=== PATIENT | male | born 1940 | race Caucasian/White ===

== ENCOUNTER 2018-09-08 10:12 | Inpatient (IN) | payer MEDICARE, MEDICAID ==
[2018-09-08] MEDS ORDERED: Sodium Chloride 0.9% 10 ML Syringe FLUSH PRN (10:40)
[2018-09-08] MEDS ORDERED: Sodium Chloride 0.9% 2.5 ML Syringe FLUSH PRN (10:40)
[2018-09-08] MEDS ORDERED: oxyCODONE 5 MG Tab PO PRN (11:00)
[2018-09-08] MEDS ORDERED: Docusate Sodium 100 MG Cap PO PRN (11:00)
[2018-09-08] MEDS ORDERED: Ondansetron 4 MG Tab.DIS PO PRN (11:00)
--- NOTE | 2018-09-08 11:16 | PCM.HP ---
H&P History of Present Illness - General Date of Service: 09/08/18 Admit Problem/Dx: Admission Diagnosis/Problem Admission Diagnosis/Problem Aspiration pneumonia due to regurgitated food Source of Information: Patient, Old Records History Limitations: Reports: Other (Poor historian) - History of Present Illness Initial Comments - Free Text/Narative: The patient is a 78-year-old gentleman who is medically complex and had been admitted directly from [facility]. The patient is a poor historian but transferring physician had been concerned about the patient having difficulty with aspiration pneumonia. There is also concerned about the patient having swallowing difficulties. According to records he had been previously on a dysphagia diet. The patient himself says that he has pneumonia but has denied any symptoms. He has been complaining specifically of pain around the skin of his right ear and painful right toenail. The patient has a history of severe psoriasis to include destruction of that his fingernails and toenails. He has denied any fever or chills. The patient reports that he has had a cough when drinking some liquids. He has no other complaints at this time. Onset of Symptoms: Reports: Gradual Duration of Symptoms: Reports: Day(s): Location: Reports: Chest Improves with: Reports: None Worsens with: Reports: None Context: Reports: Sick Contact Associated Symptoms: Reports: Cough - Related Data Allergies/Adverse Reactions: Allergies Allergy/AdvReac Type Severity Reaction Status Date / Time No Known Allergies Allergy Verified 09/08/18 11:17 Home Medications: Home Meds Amoxicillin/Potassium Clav [Augmentin 875-125 Tablet] 1 each PO BID 09/08/18 [ History] Aspirin 81 mg PO DAILY 09/08/18 [History] Cholecalciferol (Vitamin D3) [Vitamin D3] 1,000 unit PO DAILY 09/08/18 [History] Dextran 70/Hypromellose [Artificial Tears] 1 each EYEBOTH TID 09/08/18 [History] Docusate Sodium [Colace] 50 mg PO BID 09/08/18 [History] Donepezil HCl [Aricept] 10 mg PO 1700 09/08/18 [History] Fenofibrate 54 mg PO 1200 09/08/18 [History] Fish Oil/[place]-3 Fatty Acids [Fish Oil 1,000 MG] 1 each PO BID 09/08/18 [History ] Folic Acid 1 mg PO DAILY 09/08/18 [History] Furosemide 40 mg PO DAILY 09/08/18 [History] Ipratropium/Albuterol Sulfate [Iprat-Albut 0.5-3(2.5) MG/3 ML] 3 ml IH Q6H PRN 09/08/18 [History] OLANZapine [ZyPREXA] 20 mg PO DAILY 09/08/18 [History] PARoxetine HCl [Paxil] 40 mg PO 169909/08/18 [History] Pantoprazole Sodium 40 mg PO DAILY 09/08/18 [History] Polyethylene Glycol 3350 [MiraLAX] 17 gm PO BID 09/08/18 [History] Potassium Bicarb/Potassium Chl [Potassium Chloride] 40 meq PO DAILY 09/08/18 [ History] Pramipexole Di-HCl [Mirapex] 0.125 mg PO 169909/08/18 [History] Pregabalin [Lyrica] 75 mg PO TID 09/08/18 [History] amLODIPine Besylate [Norvasc] 10 mg PO DAILY 09/08/18 [History] atorvaSTATin Calcium [Lipitor] 20 mg PO 169909/08/18 [History] clonazePAM [Clonazepam] 0.25 mg PO DAILY 09/08/18 [History] metOLazone [Metolazone] 2.5 mg PO DAILY 09/08/18 [History] predniSONE 5 mg PO DAILY 09/08/18 [History] Past Medical History HEENT History: Reports: None Cardiovascular History: Reports: Heart Failure (Unspecified), Hypertension Respiratory History: Reports: Pneumonia, Recurrent Gastrointestinal History: Reports: None Genitourinary History: Reports: None Musculoskeletal History: Reports: None Neurological History: Reports: Brain Injury, Neuropathy, Diabetic, Neuropathy, Peripheral, Seizure, TIA Psychiatric History: Reports: Anxiety, Depression, Other (See Below) ( Schizoaffective) Endocrine/Metabolic History: Reports: Diabetes, Type II, Obesity/BMI 30+ Hematologic History: Reports: Anemia, Iron Deficiency Immunologic History: Reports: Other (See Below) (Psoriasis) Oncologic (Cancer) History: Reports: None Dermatologic History: Reports: Psoriasis - Infectious Disease History Infectious Disease History: Reports: None Social & Family History - Tobacco Use Smoking Status *Q: Former Smoker - Alcohol Use Alcohol Use History: No - Living Situation & Occupation Living situation: Reports: Single, Extended Care Facility Occupation: Retired H&P Review of Systems - Review of Systems: Review Of Systems: See Below General: Reports: No Symptoms HEENT: Reports: No Symptoms Pulmonary: Reports: Cough Cardiovascular: Reports: No Symptoms Gastrointestinal: Reports: No Symptoms Genitourinary: Reports: No Symptoms Musculoskeletal: Reports: No Symptoms Skin: Reports: Rash Psychiatric: Reports: No Symptoms Neurological: Reports: No Symptoms Hematologic/Lymphatic: Reports: No Symptoms Immunologic: Reports: No Symptoms Review of Systems Comment:: Poor historian Exam - Exam Exam: See Below - Vital Signs Vital Signs: Last Vital Signs Temp 37.2 C 09/08/18 10:15 Pulse 91 09/08/18 10:15 Resp 18 09/08/18 10:15 BP 152/72 H 09/08/18 10:15 Pulse Ox 96 09/08/18 10:15 - Exam Quality Assessment: Supplemental Oxygen, Skin Breakdown General: Alert, Oriented, Cooperative HEENT: Conjunctiva Clear, EACs Clear, Nares Patent, PERRLA. No: Mucosa Moist & [place] (Dry) Neck: Supple, Trachea Midline Lungs: Clear to Auscultation, Normal Respiratory Effort Cardiovascular: Regular Rate, Regular Rhythm GI/Abdominal Exam: Normal Bowel Sounds, Soft, Non-Tender, No Distention (Male) Exam: Deferred Rectal (Males) Exam: Deferred Back Exam: Normal Inspection. No: Full Range of Motion (Age changes) Extremities: Normal Inspection, No Pedal Edema Skin: Rash (Generalized body rash with scaling and plaques consistent with psoriasis. Nails fractured and fragile all digits) Neurological: Cranial Nerves Intact Neuro Extensive - Mental Status: Alert, Oriented x3 Psychiatric: Alert, Normal Mood. No: Normal Affect (Flat affect) - Patient Data Result Diagrams: 09/08/18 12:10 09/08/18 12:10 - Problem List (1) Aspiration pneumonia SNOMED Code(s): 198569836 ICD Code: J69.0 - PNEUMONITIS DUE TO INHALATION OF FOOD AND VOMIT Status: Acute Priority: High Current Visit: Yes Qualifiers: Aspiration pneumonia type: due to gastric secretions Laterality: unspecified laterality Lung location: unspecified part of lung Qualified Code(s): J69.0 - Pneumonitis due to inhalation of food and vomit (2) Chronic kidney disease, stage 3 SNOMED Code(s): 767366452 ICD Code: N18.3 - CHRONIC KIDNEY DISEASE, STAGE 3 (MODERATE) Status: Chronic Priority: High Current Visit: Yes (3) Diabetes mellitus type 2 in obese SNOMED Code(s): 25754440 ICD Code: E11.69 - TYPE 2 DIABETES MELLITUS WITH OTHER SPECIFIED COMPLICATION ; E66.9 - OBESITY, UNSPECIFIED Status: Chronic Priority: High Current Visit: Yes (4) Dysphagia SNOMED Code(s): 06491156, 141449732 ICD Code: R13.10 - DYSPHAGIA, UNSPECIFIED Status: Chronic Priority: High Current Visit: Yes Qualifiers: Dysphagia type: unspecified Qualified Code(s): R13.10 - Dysphagia, unspecified (5) Hypertension SNOMED Code(s): 31255620 ICD Code: I10 - ESSENTIAL (PRIMARY) HYPERTENSION Status: Chronic Priority : High Current Visit: Yes Qualifiers: Hypertension type: essential hypertension Qualified Code(s): I10 - Essential (primary) hypertension (6) Hyperuricemia SNOMED Code(s): 04524763 ICD Code: E79.0 - HYPERURICEMIA W/O SIGNS OF INFLAM ARTHRIT AND TOPHACEOUS DIS Status: Chronic Priority: Medium Current Visit: Yes (7) Mild cognitive impairment SNOMED Code(s): 521203928 ICD Code: G31.84 - MILD COGNITIVE IMPAIRMENT, SO STATED Status: Chronic Priority: Medium Current Visit: Yes Problem List Initiated/Reviewed/Updated: Yes Orders Last 24hrs: Active Orders 24 hr Category Date Time Status Patient Status [ADT] Routine ADT 09/08/18 11:00 Ordered Blood Glucose Check, Bedside [RC] WITHMEALSANDBED Care 09/08/18 11:00 Ordered Cardiac Monitoring [RC] CONTINUOUS Care 09/08/18 11:02 Ordered Diabetes Education [RC] Click to Edit Care 09/08/18 11:03 Ordered Oxygen Therapy [RC] PRN Care 09/08/18 11:00 Ordered Up With Assistance [RC] ASDIRECTED Care 09/08/18 11:00 Ordered VTE/DVT Education [RC] PER UNIT ROUTINE Care 09/08/18 11:00 Ordered Vital Signs [RC] Q4H Care 09/08/18 11:00 Ordered OT Evaluation and Treatment [CONS] Routine Cons 09/08/18 11:00 Ordered PT Evaluation and Treatment [CONS] Routine Cons 09/08/18 11:00 Ordered [employer] Evaluation and Treatment [CONS] Routine Cons 09/08/18 11:00 Ordered [place] [employer] Diet [DIET] Diet 09/08/18 Lunch Ordered Chest 1V Frontal [CR] Routine Exams 09/08/18 10:39 Ordered CBC WITH AUTO DIFF [HEME] Routine Lab 09/08/18 11:00 Ordered COMPREHENSIVE METABOLIC PN,CMP [CHEM] Routine Lab 09/08/18 11:00 Ordered CULTURE BLOOD [BC] Stat Lab 09/08/18 11:07 Ordered CULTURE BLOOD [BC] Stat Lab 09/08/18 11:07 Ordered MAGNESIUM [CHEM] Routine Lab 09/08/18 11:00 Ordered URIC ACID [CHEM] Routine Lab 09/08/18 11:00 Ordered Acetaminophen [Tylenol] Med 09/08/18 11:00 Ordered 650 mg PO Q4H PRN Aspirin Med 09/09/18 09:00 Ordered 81 mg PO DAILY Docusate Sodium [Colace] Med 09/08/18 11:00 Ordered 100 mg PO BID PRN Donepezil [Aricept] Med 09/08/18 17:00 Ordered 10 mg PO 1700 Fenofibrate Med 09/08/18 12:00 Ordered 54 mg PO 1200 Folic Acid Med 09/09/18 09:00 Ordered 1 mg PO DAILY Furosemide [Lasix] Med 09/09/18 09:00 Ordered 40 mg PO DAILY Heparin Sodium Med 09/08/18 11:00 Ordered 5,000 units SUBCUT Q8H Insulin Aspart [NovoLOG] Med 09/08/18 21:00 Ordered See Protocol SUBCUT ACBREAKFASTANDBED Levofloxacin/Dextrose 5%-Water [Levaquin in D5W 250 MG/ Med 09/08/18 11:15 Ordered 50 ML] 250 mg Premix Bag 1 bag IV Q24H Metolazone Med 09/09/18 09:00 Ordered 2.5 mg PO DAILY OLANZapine Med 09/09/18 09:00 Ordered 20 mg PO DAILY Ondansetron [Zofran ODT] Med 09/08/18 11:00 Ordered 4 mg PO Q4H PRN PARoxetine HCl [Paxil] Med 09/08/18 17:00 Ordered 40 mg PO 1700 Pantoprazole [ProTONIX] Med 09/09/18 09:00 Ordered 40 mg PO DAILY Potassium Bicarb/Potassium Chl Med 09/09/18 09:00 Ordered 40 meq PO DAILY Pramipexole Di-HCl Med 09/08/18 17:00 Ordered 0.125 mg PO 1700 Sodium Chloride 0.9% [Normal Saline] 1,000 ml Med 09/08/18 11:00 Ordered IV ASDIRECTED Sodium Chloride 0.9% [Saline Flush] Med 09/08/18 10:40 Active 10 ml FLUSH ASDIRECTED PRN Sodium Chloride 0.9% [Saline Flush] Med 09/08/18 10:40 Active 2.5 ml FLUSH ASDIRECTED PRN amLODIPine Besylate Med 09/09/18 09:00 Ordered 10 mg PO DAILY atorvaSTATin [Lipitor] Med 09/08/18 17:00 Ordered 20 mg PO 1700 clonazePAM [Clonazepam] Med 09/09/18 09:00 Ordered 0.25 mg PO DAILY oxyCODONE Med 09/08/18 11:00 Ordered 5 mg PO Q4H PRN predniSONE Med 09/09/18 09:00 Ordered 5 mg PO DAILY Blood Culture x2 Reflex Set [OM.PC] Stat Oth 09/08/18 11:00 Ordered Glucose Management Sub Q Reflex [OM.PC] Click To Edit Oth 09/08/18 11:00 Ordered Peripheral IV Insertion Adult [OM.PC] Routine Oth 09/08/18 10:40 Ordered Resuscitation Status Routine Resus Stat 09/08/18 11:00 Ordered Medication Orders Acetaminophen (Tylenol) 650 mg PO Q4H PRN PRN Reason: Pain (Mild 1-3)/fever Docusate Sodium (Colace) 100 mg PO BID PRN PRN Reason: Constipation Heparin Sodium (Porcine) (Heparin Sodium) 5,000 units SUBCUT Q8H [facility] Sodium Chloride (Normal Saline) 1,000 mls @ 75 mls/hr IV ASDIRECTED [facility] Levofloxacin/Dextrose 250 mg/ (Premix) 50 mls @ 50 mls/hr IV Q24H [facility] Insulin Aspart (Novolog) 0 unit SUBCUT ACBREAKFASTANDBED JULES; Protocol Ondansetron HCl (Zofran Odt) 4 mg PO Q4H PRN PRN Reason: nausea, able to take PO Oxycodone HCl (Oxycodone) 5 mg PO Q4H PRN PRN Reason: Pain (moderate 4-6) Sodium Chloride (Saline Flush) 10 ml FLUSH ASDIRECTED PRN PRN Reason: Keep Vein Open Sodium Chloride (Saline Flush) 2.5 ml FLUSH ASDIRECTED PRN PRN Reason: Keep Vein Open Assessment/Plan Comment:: The patient is a 78-year-old gentleman who had been admitted as an inpatient due to his multiple chronic medical conditions which require attention. The patient had been placed on renally dosed Levaquin secondary to aspiration pneumonia. Zosyn and vancomycin would be avoided secondary to his chronic kidney disease. The patient is also diabetic and he'll be kept on an ADA diet and of also ordered Accu-Cheks before meals and at bedtime along with insulin medium dose sliding scale. The patient will also be kept on telemetry as he does have a history of unspecified heart failure. He does not present with any signs associated with this. Chest x-ray is currently pending. The patient also has very severe cutaneous psoriasis along with fractured, brittle nails all digits. He is on prednisone for this and this will be continued. The patient also has a gel to use on his psoriasis twice a day. The patient's medication list has been reviewed and he'll be kept on appropriate medications for his hypertension, seizure disorder, dyslipidemia and his schizoaffective disorder with depression and anxiety. The patient will also be placed on heparin for DVT prophylaxis. He will also be evaluated by physical therapy and occupational therapy with regards to return home to his correction when possible. Repeat laboratory testings have been ordered.
[2018-09-08] MEDS ORDERED: Furosemide 40 MG Tab PO SCH (12:00)
[2018-09-08] MEDS: Potassium Chloride 20 MEQ Tab.ER PO SCH (12:01)
[2018-09-08] MEDS: ClonazePAM 0.5 MG Tab PO SCH (12:02)
[2018-09-08] MEDS: amLODIPine 5 MG Tab PO SCH (12:03)
[2018-09-08] MEDS: Folic Acid 1 MG Tab PO SCH (12:03)
[2018-09-08] MEDS: predniSONE 5 MG Tab PO SCH (12:04)
[2018-09-08] MEDS: Pantoprazole 40 MG Tab.CR PO SCH (12:04)
[2018-09-08] MEDS: Aspirin 81 MG Tab.Chew PO SCH (12:04)
[2018-09-08] MEDS: Heparin Sodium 5,000 Units/ML Vial SUBCUT SCH ×2 (12:05→18:51)
[2018-09-08] MEDS: Sodium Chloride 0.9% 1,000 ML IV SCH (12:05)
[2018-09-08] MEDS: Metolazone 5 MG Tab PO SCH (13:53)
[2018-09-08] MEDS: OLANZapine 5 MG Tab PO SCH (13:53)
[2018-09-08] MEDS: Levofloxacin/Dextrose 5%-Water 750 MG in Premix Bag 1 BAG IV SCH (14:03)
--- NOTE | 2018-09-08 14:08 | CR ---
Indication: Pneumonia. Technique: A single AP portable view of the chest was obtained. Comparison: None Findings: The patient is rotated to the right. This accentuates the superior mediastinum. This may or may not be white end. The heart is borderline in size. A probable right basilar atelectasis and/or infiltrate and right pleural effusion is seen. No pneumothorax is identified. Impression: Probable right lower lobe atelectasis and/or infiltrate. Patient is markedly rotated to the right. Dictated by Alix Carmona MD @ Sep 08 2018 12:58PM Signed by Dr. Alix Carmona @ Sep 08 2018 12:59PM
[2018-09-08] MEDS ORDERED: Magnesium Sulfate/Water 4 GM in Premix Bag 1 BAG IV ONE (16:48)
[2018-09-08] MEDS: PARoxetine 20 MG Tab PO SCH (17:30)
[2018-09-08] MEDS: Pramipexole 0.25 MG Tab PO SCH (17:30)
[2018-09-08] MEDS: Donepezil 10 MG Tab PO SCH (17:30)
[2018-09-08] MEDS: atorvaSTATin 20 MG Tab PO SCH (17:31)
[2018-09-08] MEDS: Acetaminophen 325 MG Tab PO PRN (17:32)
[2018-09-08] MEDS: Insulin Aspart 100 Units/ML 3 ML Pen SUBCUT SCH ×2 (17:41→20:31)
[2018-09-08] MEDS ORDERED: Insulin Aspart 100 Units/ML 3 ML Pen SUBCUT SCH (21:00)
[2018-09-09] MEDS: Acetaminophen 325 MG Tab PO PRN (00:13)
[2018-09-09] MEDS: Heparin Sodium 5,000 Units/ML Vial SUBCUT SCH ×3 (04:16→18:04)
[2018-09-09] MEDS: Sodium Chloride 0.9% 1,000 ML IV SCH (04:17)
[2018-09-09] MEDS: Insulin Aspart 100 Units/ML 3 ML Pen SUBCUT SCH ×5 (06:57→21:05)
--- NOTE | 2018-09-09 08:21 | PCM.PN ---
<Yamilet Harris M - Last Filed: 09/09/18 10:39> - General Info Date of Service: 09/09/18 Admission Dx/Problem (Free Text): Admission Diagnosis/Problem Admission Diagnosis/Problem Aspiration pneumonia due to regurgitated food Subjective Update: Sitting up in the recliner, reports he is not feeling well today. Reports more short of breath than yesterday. Denies chest pain. Hurts all over he reports. Reports cough, non productive. Functional Status: Reports: Tolerating Diet, Urinating. Denies: Ambulating - Review of Systems General: Reports: Weakness, Malaise HEENT: Reports: No Symptoms. Denies: Headaches, Sore Throat Pulmonary: Reports: Shortness of Breath, Cough, Wheezing. Denies: Sputum Cardiovascular: Reports: No Symptoms. Denies: Chest Pain, Orthopnea, Edema, Lightheadedness Gastrointestinal: Reports: No Symptoms. Denies: Abdominal Pain, Nausea, Vomiting Genitourinary: Reports: No Symptoms. Denies: Dysuria, Frequency, Burning Musculoskeletal: Reports: No Symptoms Skin: Reports: Dryness, Rash Neurological: Reports: No Symptoms Psychiatric: Reports: No Symptoms - Patient Data Vitals - Most Recent: Last Vital Signs Temp 97.3 F 09/09/18 07:18 Pulse 73 09/09/18 07:18 Resp 16 09/09/18 07:18 BP 154/91 H 09/09/18 07:18 Pulse Ox 99 09/09/18 07:18 Weight - Most Recent: 110.042 kg I&O - Last 24 Hours: Intake & Output 09/08/18 09/09/18 09/09/18 22:59 06:59 14:59 Intake Total 722 400 Balance 722 400 Lab Results Last 24 Hours: Laboratory Results - last 24 hr 09/08/18 09/08/18 09/08/18 Range/Units 11:30 12:10 12:10 WBC 13.78 H (4.0-11.0) K/uL RBC 4.11 L (4.50-5.90) M/uL Hgb 11.5 L (13.0-17.0) g/dL Hct 37.9 L (38.0-50.0) % MCV 92.2 (80.0-98.0) fL MCH 28.0 (27.0-32.0) pg MCHC 30.3 L (31.0-37.0) g/dL RDW Std Deviation 57.7 (28.0-62.0) fl RDW Coeff of Mattie 17 H (11.0-15.0) % Plt Count 217 (150-400) K/uL MPV 11.90 (7.40-12.00) fL Neut % (Auto) 80.9 H (48.0-80.0) % Lymph % (Auto) 6.2 L (16.0-40.0) % [place] % (Auto) 9.6 (0.0-15.0) % Eos % (Auto) 3.1 (0.0-7.0) % Baso % (Auto) 0.2 (0.0-1.5) % Neut # (Auto) 11.1 H (1.4-5.7) K/uL Lymph # (Auto) 0.9 (0.6-2.4) K/uL [place] # (Auto) 1.3 H (0.0-0.8) K/uL Eos # (Auto) 0.4 (0.0-0.7) K/uL Baso # (Auto) 0.0 (0.0-0.1) K/uL Nucleated RBC % 0.0 /100WBC Nucleated RBCs # 0 K/uL Sodium 148 (136-148) mmol/L Potassium 4.2 (3.5-5.1) mmol/L Chloride 108 H (98-107) mmol/L Carbon Dioxide 36.1 H (21.0-32.0) mmol/L BUN 42 H (7.0-18.0) mg/dL Creatinine 2.0 H (0.8-1.3) mg/dL Est Cr Clr Drug Dosing 29.93 mL/min Estimated GFR (MDRD) 32.6 ml/min Glucose 131 H (74-106) mg/dL POC Glucose 128 H (60-110) mg/dL Uric Acid 9.6 H (2.6-7.2) mg/dL Calcium 11.0 H (8.5-10.1) mg/dL Magnesium 1.7 L (1.8-2.4) mg/dL Total Bilirubin 0.4 (0.2-1.0) mg/dL AST 19 (15-37) IU/L ALT 8 L (14-63) IU/L Alkaline Phosphatase 41 L (46-116) U/L Total Protein 6.6 (6.4-8.2) g/dL Albumin 2.3 L (3.4-5.0) g/dL Globulin 4.3 H (2.6-4.0) g/dL Albumin/Globulin Ratio 0.5 L (0.9-1.6) 09/08/18 09/08/18 09/09/18 Range/Units 17:16 20:13 05:49 WBC 10.57 (4.0-11.0) K/uL RBC 3.77 L (4.50-5.90) M/uL Hgb 10.4 L (13.0-17.0) g/dL Hct 34.7 L (38.0-50.0) % MCV 92.0 (80.0-98.0) fL MCH 27.6 (27.0-32.0) pg MCHC 30.0 L (31.0-37.0) g/dL RDW Std Deviation 56.2 (28.0-62.0) fl RDW Coeff of Mattie 17 H (11.0-15.0) % Plt Count 207 (150-400) K/uL MPV 11.90 (7.40-12.00) fL Neut % (Auto) 80.3 H (48.0-80.0) % Lymph % (Auto) 6.5 L (16.0-40.0) % [place] % (Auto) 8.7 (0.0-15.0) % Eos % (Auto) 4.3 (0.0-7.0) % Baso % (Auto) 0.2 (0.0-1.5) % Neut # (Auto) 8.5 H (1.4-5.7) K/uL Lymph # (Auto) 0.7 (0.6-2.4) K/uL [place] # (Auto) 0.9 H (0.0-0.8) K/uL Eos # (Auto) 0.5 (0.0-0.7) K/uL Baso # (Auto) 0.0 (0.0-0.1) K/uL Nucleated RBC % 0.0 /100WBC Nucleated RBCs # 0 K/uL Sodium (136-148) mmol/L Potassium (3.5-5.1) mmol/L Chloride (98-107) mmol/L Carbon Dioxide (21.0-32.0) mmol/L BUN (7.0-18.0) mg/dL Creatinine (0.8-1.3) mg/dL Est Cr Clr Drug Dosing mL/min Estimated GFR (MDRD) ml/min Glucose (74-106) mg/dL POC Glucose 218 H 221 H (60-110) mg/dL Uric Acid (2.6-7.2) mg/dL Calcium (8.5-10.1) mg/dL Magnesium (1.8-2.4) mg/dL Total Bilirubin (0.2-1.0) mg/dL AST (15-37) IU/L ALT (14-63) IU/L Alkaline Phosphatase (46-116) U/L Total Protein (6.4-8.2) g/dL Albumin (3.4-5.0) g/dL Globulin (2.6-4.0) g/dL Albumin/Globulin Ratio (0.9-1.6) 09/09/18 Range/Units 05:49 WBC (4.0-11.0) K/uL RBC (4.50-5.90) M/uL Hgb (13.0-17.0) g/dL Hct (38.0-50.0) % MCV (80.0-98.0) fL MCH (27.0-32.0) pg MCHC (31.0-37.0) g/dL RDW Std Deviation (28.0-62.0) fl RDW Coeff of Mattie (11.0-15.0) % Plt Count (150-400) K/uL MPV (7.40-12.00) fL Neut % (Auto) (48.0-80.0) % Lymph % (Auto) (16.0-40.0) % [place] % (Auto) (0.0-15.0) % Eos % (Auto) (0.0-7.0) % Baso % (Auto) (0.0-1.5) % Neut # (Auto) (1.4-5.7) K/uL Lymph # (Auto) (0.6-2.4) K/uL [place] # (Auto) (0.0-0.8) K/uL Eos # (Auto) (0.0-0.7) K/uL Baso # (Auto) (0.0-0.1) K/uL Nucleated RBC % /100WBC Nucleated RBCs # K/uL Sodium 148 (136-148) mmol/L Potassium 3.5 (3.5-5.1) mmol/L Chloride 109 H (98-107) mmol/L Carbon Dioxide 33.2 H (21.0-32.0) mmol/L BUN 45 H (7.0-18.0) mg/dL Creatinine 2.0 H (0.8-1.3) mg/dL Est Cr Clr Drug Dosing 29.93 mL/min Estimated GFR (MDRD) 32.6 ml/min Glucose 128 H (74-106) mg/dL POC Glucose (60-110) mg/dL Uric Acid (2.6-7.2) mg/dL Calcium 10.7 H (8.5-10.1) mg/dL Magnesium 2.4 (1.8-2.4) mg/dL Total Bilirubin 0.3 (0.2-1.0) mg/dL AST 20 (15-37) IU/L ALT 14 (14-63) IU/L Alkaline Phosphatase 42 L (46-116) U/L Total Protein 5.9 L (6.4-8.2) g/dL Albumin 2.0 L (3.4-5.0) g/dL Globulin 3.9 (2.6-4.0) g/dL Albumin/Globulin Ratio 0.5 L (0.9-1.6) Med Orders - Current: Current Medications Acetaminophen (Tylenol) 650 mg PO Q4H PRN PRN Reason: Pain (Mild 1-3)/fever Last Admin: 09/09/18 00:13 Dose: 650 mg Amlodipine Besylate (Norvasc) 10 mg PO DAILY [facility] Last Admin: 09/08/18 12:03 Dose: 10 mg Aspirin (Aspirin) 81 mg PO DAILY [facility] Last Admin: 09/08/18 12:04 Dose: 81 mg Atorvastatin Calcium (Lipitor) 20 mg PO DAILY@1700 [facility] Last Admin: 09/08/18 17:31 Dose: 20 mg Clonazepam (Klonopin) 0.25 mg PO DAILY [facility] Last Admin: 09/08/18 12:02 Dose: 0.25 mg Docusate Sodium (Colace) 100 mg PO BID PRN PRN Reason: Constipation Donepezil HCl (Aricept) 10 mg PO DAILY@1700 [facility] Last Admin: 09/08/18 17:30 Dose: 10 mg Folic Acid (Folic Acid) 1 mg PO DAILY [facility] Last Admin: 09/08/18 12:03 Dose: 1 mg Furosemide (Lasix) 40 mg PO DAILY [facility] Last Admin: 09/08/18 12:04 Dose: 40 mg Heparin Sodium (Porcine) (Heparin Sodium) 5,000 units SUBCUT Q8H [facility] Last Admin: 09/09/18 04:16 Dose: 5,000 units Levofloxacin/Dextrose 750 mg/ (Premix) 150 mls @ 100 mls/hr IV Q48H [facility] Last Admin: 09/08/18 14:03 Dose: 100 mls/hr Insulin Aspart (Novolog) 0 unit SUBCUT QIDACANDBED [facility]; Protocol Last Admin: 09/09/18 06:57 Dose: Not Given Metolazone (Zaroxolyn) 2.5 mg PO DAILY [facility] Last Admin: 09/08/18 13:53 Dose: 2.5 mg Olanzapine (Zyprexa) 20 mg PO DAILY [facility] Last Admin: 09/08/18 13:53 Dose: 20 mg Ondansetron HCl (Zofran Odt) 4 mg PO Q4H PRN PRN Reason: nausea, able to take PO Oxycodone HCl (Oxycodone) 5 mg PO Q4H PRN PRN Reason: Pain (moderate 4-6) Pantoprazole Sodium (Protonix) 40 mg PO DAILY [facility] Last Admin: 09/08/18 12:04 Dose: 40 mg Paroxetine HCl (Paxil) 40 mg PO DAILY@1700 [facility] Last Admin: 09/08/18 17:30 Dose: 40 mg Fenofibrate 54 Mg 1 each PO DAILY@1200 [facility] Last Admin: 09/08/18 13:05 Dose: Not Given Potassium Chloride (Klor-Con M20) 40 meq PO DAILY [facility] Last Admin: 09/08/18 12:01 Dose: 40 meq Pramipexole Dihydrochloride (Mirapex) 0.125 mg PO DAILY@1700 [facility] Last Admin: 09/08/18 17:30 Dose: 0.125 mg Prednisone (Prednisone) 5 mg PO DAILY [facility] Last Admin: 09/08/18 12:04 Dose: 5 mg Sodium Chloride (Saline Flush) 10 ml FLUSH ASDIRECTED PRN PRN Reason: Keep Vein Open Sodium Chloride (Saline Flush) 2.5 ml FLUSH ASDIRECTED PRN PRN Reason: Keep Vein Open Discontinued Medications Sodium Chloride (Normal Saline) 1,000 mls @ 75 mls/hr IV ASDIRECTED [facility] Last Admin: 09/09/18 04:17 Dose: 75 mls/hr Magnesium Sulfate 4 gm/ Premix 100 mls @ 50 mls/hr IV ONETIME ONE Stop: 09/08/18 18:47 Last Admin: 09/08/18 17:26 Dose: 50 mls/hr Insulin Aspart (Novolog) 0 unit SUBCUT ACBREAKFASTANDBED [facility]; Protocol - Exam Quality Assessment: Supplemental Oxygen, DVT Prophylaxis General: Alert, Oriented, Cooperative, No Acute Distress Lungs: Rhonchi (throughout), Wheezing (throughout). No: Normal Respiratory Effort (dyspneic) Cardiovascular: Regular Rate, Regular Rhythm, No Murmurs GI/Abdominal Exam: Normal Bowel Sounds, Soft, Non-Tender, Other (obese abdomen) Back Exam: Normal Inspection, Full Range of Motion Extremities: Normal Inspection, Normal Range of Motion, Non-Tender, No Pedal Edema Skin: Other (proriasis plaques noted throughout skin with flaking skin. ) Wound/Incisions: No: Erythema Neurological: No New Focal Deficit Psy/Mental Status: Alert, Normal Affect, Normal Mood - Problem List & Annotations (1) Aspiration pneumonia SNOMED Code(s): 637681517 Code(s): J69.0 - PNEUMONITIS DUE TO INHALATION OF FOOD AND VOMIT Status: Acute Priority: High Current Visit: Yes Qualifiers: Aspiration pneumonia type: due to gastric secretions Laterality: right Lung location: lower lobe of lung Qualified Code(s): J69.0 - Pneumonitis due to inhalation of food and vomit (2) Dysphagia SNOMED Code(s): 00238109, 360692310 Code(s): R13.10 - DYSPHAGIA, UNSPECIFIED Status: Chronic Priority: High Current Visit: Yes Qualifiers: Dysphagia type: unspecified Qualified Code(s): R13.10 - Dysphagia, unspecified (3) Hypercalcemia SNOMED Code(s): 76691805 Code(s): E83.52 - HYPERCALCEMIA Status: Acute Current Visit: Yes (4) Heart failure SNOMED Code(s): 12298605 Code(s): I50.9 - HEART FAILURE, UNSPECIFIED Status: Chronic Current Visit : Yes Qualifiers: Heart failure type: unspecified Heart failure chronicity: acute on chronic Qualified Code(s): I50.9 - Heart failure, unspecified (5) Generalized anxiety disorder SNOMED Code(s): 02231647 Code(s): F41.1 - GENERALIZED ANXIETY DISORDER Status: Chronic Current Visit: Yes (6) Gout SNOMED Code(s): 07365566 Code(s): M10.9 - GOUT, UNSPECIFIED Status: Chronic Current Visit: Yes (7) History of TIA (transient ischemic attack) and stroke SNOMED Code(s): 924363986, 697738490, 132901690 Code(s): Z86.73 - PRSNL HX OF TIA (TIA), AND CEREB INFRC W/O RESID DEFICITS Status: Chronic Current Visit: Yes (8) Hyperlipidemia SNOMED Code(s): 39978460 Code(s): E78.5 - HYPERLIPIDEMIA, UNSPECIFIED Status: Chronic Current Visit: Yes (9) Neuropathy SNOMED Code(s): 563308479 Code(s): G62.9 - POLYNEUROPATHY, UNSPECIFIED Status: Chronic Current Visit: Yes (10) Psoriasis SNOMED Code(s): 6178049 Code(s): L40.9 - PSORIASIS, UNSPECIFIED Status: Chronic Current Visit: Yes (11) Schizoaffective disorder SNOMED Code(s): 07664618 Code(s): F25.9 - SCHIZOAFFECTIVE DISORDER, UNSPECIFIED Status: Chronic Current Visit: Yes (12) Seizure disorder SNOMED Code(s): 778307619 Code(s): G40.909 - EPILEPSY, UNSP, NOT INTRACTABLE, WITHOUT STATUS EPILEPTICUS Status: Chronic Current Visit: Yes (13) Sleep apnea SNOMED Code(s): 64516588 Code(s): G47.30 - SLEEP APNEA, UNSPECIFIED Status: Chronic Current Visit : Yes (14) Chronic kidney disease, stage 3 SNOMED Code(s): 917608588 Code(s): N18.3 - CHRONIC KIDNEY DISEASE, STAGE 3 (MODERATE) Status: Chronic Priority: High Current Visit: Yes (15) Diabetes mellitus type 2 in obese SNOMED Code(s): 94694370 Code(s): E11.69 - TYPE 2 DIABETES MELLITUS WITH OTHER SPECIFIED COMPLICATION ; E66.9 - OBESITY, UNSPECIFIED Status: Chronic Priority: High Current Visit: Yes (16) Hypertension SNOMED Code(s): 78126130 Code(s): I10 - ESSENTIAL (PRIMARY) HYPERTENSION Status: Chronic Priority : High Current Visit: Yes Qualifiers: Hypertension type: essential hypertension Qualified Code(s): I10 - Essential (primary) hypertension (17) Hyperuricemia SNOMED Code(s): 85001358 Code(s): E79.0 - HYPERURICEMIA W/O SIGNS OF INFLAM ARTHRIT AND TOPHACEOUS DIS Status: Chronic Priority: Medium Current Visit: Yes (18) Mild cognitive impairment SNOMED Code(s): 311115390 Code(s): G31.84 - MILD COGNITIVE IMPAIRMENT, SO STATED Status: Chronic Priority: Medium Current Visit: Yes (19) Oxygen dependent SNOMED Code(s): 669700960896 Code(s): Z99.81 - DEPENDENCE ON SUPPLEMENTAL OXYGEN Status: Chronic Current Visit: Yes - Problem List Review Problem List Initiated/Reviewed/Updated: Yes - Plan Plan:: This 78 year old male with multiple medical comorbidities admitted with aspiration pneumonia 1. Aspiration Pneumonia: Reports feeling short of breath today. Wheezing noted. Will continue Levaquin, to add anaerobic coverage will add Clindamycin 600 mg IV every 8 hours. Stop IVFs. BC pending. Attempt to obtain sputum culture if possible. ST consulted and saw this morning. Reports coughing with large gulps, recommended smaller gulps. Will continue with [place] thick liquids. Pills with pureed, no two consistency foods and remain on mechanical soft. Unable to do modified barium swallow due to no in house radiology available this week. ST recommends to obtain this as outpatient. Pulmonary toilet, Duonebs, IS and flutter valve ordered. 2. CHF: feeling more SOB. BUN elevated slightly. Rhonchi and crackles noted throughout lung exam. Will stop PO Lasix and five IV Lasix 40 mg now. Monitor. Stop IVFs. Will obtain ECHO, has CHF but unspecified type. Discontinue Metolazone, see below. Monitor fluid status cosely. Monitor on telemetry. Daily weights and strict I/O. Oxygen dependent at senior living 2-4 L NC. 3. Hypercalcemia: Corrected calcium is 12.29. Calcium supplementation stopped per halfway prior to arrival. May be related to Metolazone, will hold this. Will obtain some labwork, Vitamin D level, PTH, urine calcium, SPEP, phosphorous and peripheral blood smear. 4. CKD Stage 3: Monitor. Avoid nephrotoxic medications. Medications renally dosed. 5. Dm Type 2: Novolog SSI, BS well controlled. Monitor. ADA diet 6. HTN: BP elevated this morning, 180s SBP. Discontinuing fluids as above. Continue Amlodipine. Lasix IV this am. 7. Psorasis: Severe with skin picking disorder. Continue Prednisone. Monitor. 8. Schizoaffective disorder: Continue Paxil and Zyprexa. Stable. VTE prophylaxis: Heparin Dispo: 2-4 days pending improvement. <Kamran Qureshi - Last Filed: 09/09/18 11:27> - General Info Admission Dx/Problem (Free Text): I have examined the patient independently of Yamilet Harris CNP and have discussed the case with her. I have reviewed and agree with the findings and plan of care as outlined for this patient. Please see orders. - Patient Data Vitals - Most Recent: Last Vital Signs Temp 36.3 C 09/09/18 07:18 Pulse 73 09/09/18 09:52 Resp 16 09/09/18 07:18 BP 183/80 H 09/09/18 09:52 Pulse Ox 99 09/09/18 07:18 I&O - Last 24 Hours: Intake & Output 09/08/18 09/09/18 09/09/18 22:59 06:59 14:59 Intake Total 722 400 5 Balance 722 400 5 Lab Results Last 24 Hours: Laboratory Results - last 24 hr 09/08/18 09/08/18 09/08/18 Range/Units 11:30 12:10 12:10 WBC 13.78 H (4.0-11.0) K/uL RBC 4.11 L (4.50-5.90) M/uL Hgb 11.5 L (13.0-17.0) g/dL Hct 37.9 L (38.0-50.0) % MCV 92.2 (80.0-98.0) fL MCH 28.0 (27.0-32.0) pg MCHC 30.3 L (31.0-37.0) g/dL RDW Std Deviation 57.7 (28.0-62.0) fl RDW Coeff of Mattie 17 H (11.0-15.0) % Plt Count 217 (150-400) K/uL MPV 11.90 (7.40-12.00) fL Neut % (Auto) 80.9 H (48.0-80.0) % Lymph % (Auto) 6.2 L (16.0-40.0) % [place] % (Auto) 9.6 (0.0-15.0) % Eos % (Auto) 3.1 (0.0-7.0) % Baso % (Auto) 0.2 (0.0-1.5) % Neut # (Auto) 11.1 H (1.4-5.7) K/uL Lymph # (Auto) 0.9 (0.6-2.4) K/uL [place] # (Auto) 1.3 H (0.0-0.8) K/uL Eos # (Auto) 0.4 (0.0-0.7) K/uL Baso # (Auto) 0.0 (0.0-0.1) K/uL Nucleated RBC % 0.0 /100WBC Nucleated RBCs # 0 K/uL Smear Path Review Sodium 148 (136-148) mmol/L Potassium 4.2 (3.5-5.1) mmol/L Chloride 108 H (98-107) mmol/L Carbon Dioxide 36.1 H (21.0-32.0) mmol/L BUN 42 H (7.0-18.0) mg/dL Creatinine 2.0 H (0.8-1.3) mg/dL Est Cr Clr Drug Dosing 29.93 mL/min Estimated GFR (MDRD) 32.6 ml/min Glucose 131 H (74-106) mg/dL POC Glucose 128 H (60-110) mg/dL Uric Acid 9.6 H (2.6-7.2) mg/dL Calcium 11.0 H (8.5-10.1) mg/dL Phosphorus (2.6-4.7) mg/dL Magnesium 1.7 L (1.8-2.4) mg/dL Total Bilirubin 0.4 (0.2-1.0) mg/dL AST 19 (15-37) IU/L ALT 8 L (14-63) IU/L Alkaline Phosphatase 41 L (46-116) U/L Total Protein 6.6 (6.4-8.2) g/dL Albumin 2.3 L (3.4-5.0) g/dL Globulin 4.3 H (2.6-4.0) g/dL Albumin/Globulin Ratio 0.5 L (0.9-1.6) 09/08/18 09/08/18 09/09/18 Range/Units 17:16 20:13 05:49 WBC 10.57 (4.0-11.0) K/uL RBC 3.77 L (4.50-5.90) M/uL Hgb 10.4 L (13.0-17.0) g/dL Hct 34.7 L (38.0-50.0) % MCV 92.0 (80.0-98.0) fL MCH 27.6 (27.0-32.0) pg MCHC 30.0 L (31.0-37.0) g/dL RDW Std Deviation 56.2 (28.0-62.0) fl RDW Coeff of Mattie 17 H (11.0-15.0) % Plt Count 207 (150-400) K/uL MPV 11.90 (7.40-12.00) fL Neut % (Auto) 80.3 H (48.0-80.0) % Lymph % (Auto) 6.5 L (16.0-40.0) % [place] % (Auto) 8.7 (0.0-15.0) % Eos % (Auto) 4.3 (0.0-7.0) % Baso % (Auto) 0.2 (0.0-1.5) % Neut # (Auto) 8.5 H (1.4-5.7) K/uL Lymph # (Auto) 0.7 (0.6-2.4) K/uL [place] # (Auto) 0.9 H (0.0-0.8) K/uL Eos # (Auto) 0.5 (0.0-0.7) K/uL Baso # (Auto) 0.0 (0.0-0.1) K/uL Nucleated RBC % 0.0 /100WBC Nucleated RBCs # 0 K/uL Smear Path Review Sodium (136-148) mmol/L Potassium (3.5-5.1) mmol/L Chloride (98-107) mmol/L Carbon Dioxide (21.0-32.0) mmol/L BUN (7.0-18.0) mg/dL Creatinine (0.8-1.3) mg/dL Est Cr Clr Drug Dosing mL/min Estimated GFR (MDRD) ml/min Glucose (74-106) mg/dL POC Glucose 218 H 221 H (60-110) mg/dL Uric Acid (2.6-7.2) mg/dL Calcium (8.5-10.1) mg/dL Phosphorus (2.6-4.7) mg/dL Magnesium (1.8-2.4) mg/dL Total Bilirubin (0.2-1.0) mg/dL AST (15-37) IU/L ALT (14-63) IU/L Alkaline Phosphatase (46-116) U/L Total Protein (6.4-8.2) g/dL Albumin (3.4-5.0) g/dL Globulin (2.6-4.0) g/dL Albumin/Globulin Ratio (0.9-1.6) 09/09/18 09/09/18 09/09/18 Range/Units 05:49 05:49 05:49 WBC (4.0-11.0) K/uL RBC (4.50-5.90) M/uL Hgb (13.0-17.0) g/dL Hct (38.0-50.0) % MCV (80.0-98.0) fL MCH (27.0-32.0) pg MCHC (31.0-37.0) g/dL RDW Std Deviation (28.0-62.0) fl RDW Coeff of Mattie (11.0-15.0) % Plt Count (150-400) K/uL MPV (7.40-12.00) fL Neut % (Auto) (48.0-80.0) % Lymph % (Auto) (16.0-40.0) % [place] % (Auto) (0.0-15.0) % Eos % (Auto) (0.0-7.0) % Baso % (Auto) (0.0-1.5) % Neut # (Auto) (1.4-5.7) K/uL Lymph # (Auto) (0.6-2.4) K/uL [place] # (Auto) (0.0-0.8) K/uL Eos # (Auto) (0.0-0.7) K/uL Baso # (Auto) (0.0-0.1) K/uL Nucleated RBC % /100WBC Nucleated RBCs # K/uL Smear Path Review SENT TO PATHOLOGY Sodium 148 (136-148) mmol/L Potassium 3.5 (3.5-5.1) mmol/L Chloride 109 H (98-107) mmol/L Carbon Dioxide 33.2 H (21.0-32.0) mmol/L BUN 45 H (7.0-18.0) mg/dL Creatinine 2.0 H (0.8-1.3) mg/dL Est Cr Clr Drug Dosing 29.93 mL/min Estimated GFR (MDRD) 32.6 ml/min Glucose 128 H (74-106) mg/dL POC Glucose (60-110) mg/dL Uric Acid (2.6-7.2) mg/dL Calcium 10.7 H (8.5-10.1) mg/dL Phosphorus 2.9 (2.6-4.7) mg/dL Magnesium 2.4 (1.8-2.4) mg/dL Total Bilirubin 0.3 (0.2-1.0) mg/dL AST 20 (15-37) IU/L ALT 14 (14-63) IU/L Alkaline Phosphatase 42 L (46-116) U/L Total Protein 5.9 L (6.4-8.2) g/dL Albumin 2.0 L (3.4-5.0) g/dL Globulin 3.9 (2.6-4.0) g/dL Albumin/Globulin Ratio 0.5 L (0.9-1.6) 09/09/18 09/09/18 Range/Units 06:30 11:16 WBC (4.0-11.0) K/uL RBC (4.50-5.90) M/uL Hgb (13.0-17.0) g/dL Hct (38.0-50.0) % MCV (80.0-98.0) fL MCH (27.0-32.0) pg MCHC (31.0-37.0) g/dL RDW Std Deviation (28.0-62.0) fl RDW Coeff of Mattie (11.0-15.0) % Plt Count (150-400) K/uL MPV (7.40-12.00) fL Neut % (Auto) (48.0-80.0) % Lymph % (Auto) (16.0-40.0) % [place] % (Auto) (0.0-15.0) % Eos % (Auto) (0.0-7.0) % Baso % (Auto) (0.0-1.5) % Neut # (Auto) (1.4-5.7) K/uL Lymph # (Auto) (0.6-2.4) K/uL [place] # (Auto) (0.0-0.8) K/uL Eos # (Auto) (0.0-0.7) K/uL Baso # (Auto) (0.0-0.1) K/uL Nucleated RBC % /100WBC Nucleated RBCs # K/uL Smear Path Review Sodium (136-148) mmol/L Potassium (3.5-5.1) mmol/L Chloride (98-107) mmol/L Carbon Dioxide (21.0-32.0) mmol/L BUN (7.0-18.0) mg/dL Creatinine (0.8-1.3) mg/dL Est Cr Clr Drug Dosing mL/min Estimated GFR (MDRD) ml/min Glucose (74-106) mg/dL POC Glucose 124 H 156 H (60-110) mg/dL Uric Acid (2.6-7.2) mg/dL Calcium (8.5-10.1) mg/dL Phosphorus (2.6-4.7) mg/dL Magnesium (1.8-2.4) mg/dL Total Bilirubin (0.2-1.0) mg/dL AST (15-37) IU/L ALT (14-63) IU/L Alkaline Phosphatase (46-116) U/L Total Protein (6.4-8.2) g/dL Albumin (3.4-5.0) g/dL Globulin (2.6-4.0) g/dL Albumin/Globulin Ratio (0.9-1.6) Med Orders - Current: Current Medications Acetaminophen (Tylenol) 650 mg PO Q4H PRN PRN Reason: Pain (Mild 1-3)/fever Last Admin: 09/09/18 00:13 Dose: 650 mg Albuterol/Ipratropium (Duoneb 3.0-0.5 Mg/3 Ml) 3 ml NEB Q4HRRT [facility] Last Admin: 09/09/18 10:04 Dose: 3 ml Amlodipine Besylate (Norvasc) 10 mg PO DAILY [facility] Last Admin: 09/09/18 09:20 Dose: 10 mg Aspirin (Aspirin) 81 mg PO DAILY [facility] Last Admin: 09/09/18 09:11 Dose: 81 mg Atorvastatin Calcium (Lipitor) 20 mg PO DAILY@1700 [facility] Last Admin: 09/08/18 17:31 Dose: 20 mg Clonazepam (Klonopin) 0.25 mg PO DAILY [facility] Last Admin: 09/09/18 09:21 Dose: 0.25 mg Docusate Sodium (Colace) 100 mg PO BID PRN PRN Reason: Constipation Donepezil HCl (Aricept) 10 mg PO DAILY@1700 [facility] Last Admin: 09/08/18 17:30 Dose: 10 mg Fish Oil (Fish Oil) 1 gm PO BID [facility] Folic Acid (Folic Acid) 1 mg PO DAILY [facility] Last Admin: 09/09/18 09:11 Dose: 1 mg Heparin Sodium (Porcine) (Heparin Sodium) 5,000 units SUBCUT Q8H [facility] Last Admin: 09/09/18 10:26 Dose: 5,000 units Levofloxacin/Dextrose 750 mg/ (Premix) 150 mls @ 100 mls/hr IV Q48H [facility] Last Admin: 09/08/18 14:03 Dose: 100 mls/hr Clindamycin Phosphate 600 mg/ (Premix) 50 mls @ 100 mls/hr IV Q8H [facility] Insulin Aspart (Novolog) 0 unit SUBCUT QIDACANDBED [facility]; Protocol Last Admin: 09/09/18 06:57 Dose: Not Given Olanzapine (Zyprexa) 20 mg PO DAILY [facility] Last Admin: 09/09/18 09:10 Dose: 20 mg Ondansetron HCl (Zofran Odt) 4 mg PO Q4H PRN PRN Reason: nausea, able to take PO Pantoprazole Sodium (Protonix) 40 mg PO DAILY [facility] Last Admin: 09/09/18 09:12 Dose: 40 mg Paroxetine HCl (Paxil) 40 mg PO DAILY@1700 [facility] Last Admin: 09/08/18 17:30 Dose: 40 mg Fenofibrate 54 Mg 1 each PO DAILY@1200 [facility] Last Admin: 09/08/18 13:05 Dose: Not Given Dextran 70/Hypromellose [ Artificial Tears] 1 Each 1 each EYEBOTH TID [facility] Polyethylene Glycol (Miralax) 17 gm PO BID [facility] Potassium Chloride (Klor-Con M20) 40 meq PO DAILY [facility] Last Admin: 09/09/18 09:10 Dose: 40 meq Pramipexole Dihydrochloride (Mirapex) 0.125 mg PO DAILY@1700 [facility] Last Admin: 09/08/18 17:30 Dose: 0.125 mg Prednisone (Prednisone) 5 mg PO DAILY [facility] Last Admin: 09/09/18 09:12 Dose: 5 mg Pregabalin (Lyrica) 75 mg PO TID [facility] Sodium Chloride (Saline Flush) 10 ml FLUSH ASDIRECTED PRN PRN Reason: Keep Vein Open Sodium Chloride (Saline Flush) 2.5 ml FLUSH ASDIRECTED PRN PRN Reason: Keep Vein Open Discontinued Medications Furosemide (Lasix) 40 mg PO DAILY [facility] Last Admin: 09/08/18 12:04 Dose: 40 mg Furosemide (Lasix) 40 mg IVPUSH NOW ONE Stop: 09/09/18 08:59 Last Admin: 09/09/18 10:22 Dose: 40 mg Sodium Chloride (Normal Saline) 1,000 mls @ 75 mls/hr IV ASDIRECTED [facility] Last Admin: 09/09/18 04:17 Dose: 75 mls/hr Magnesium Sulfate 4 gm/ Premix 100 mls @ 50 mls/hr IV ONETIME ONE Stop: 09/08/18 18:47 Last Admin: 09/08/18 17:26 Dose: 50 mls/hr Insulin Aspart (Novolog) 0 unit SUBCUT ACBREAKFASTANDBED [facility]; Protocol Metolazone (Zaroxolyn) 2.5 mg PO DAILY [facility] Last Admin: 09/09/18 09:11 Dose: 2.5 mg Non-Formulary Medication (Docusate Sodium [Colace]) 50 mg PO BID [facility] Oxycodone HCl (Oxycodone) 5 mg PO Q4H PRN PRN Reason: Pain (moderate 4-6) - Problem List & Annotations (1) Aspiration pneumonia SNOMED Code(s): 794833419 Code(s): J69.0 - PNEUMONITIS DUE TO INHALATION OF FOOD AND VOMIT Status: Acute Priority: High Current Visit: Yes Qualifiers: Aspiration pneumonia type: due to gastric secretions Laterality: right Lung location: lower lobe of lung Qualified Code(s): J69.0 - Pneumonitis due to inhalation of food and vomit (2) Chronic kidney disease, stage 3 SNOMED Code(s): 105403374 Code(s): N18.3 - CHRONIC KIDNEY DISEASE, STAGE 3 (MODERATE) Status: Chronic Priority: High Current Visit: Yes (3) Diabetes mellitus type 2 in obese SNOMED Code(s): 81498256 Code(s): E11.69 - TYPE 2 DIABETES MELLITUS WITH OTHER SPECIFIED COMPLICATION ; E66.9 - OBESITY, UNSPECIFIED Status: Chronic Priority: High Current Visit: Yes (4) Dysphagia SNOMED Code(s): 18150846, 950246377 Code(s): R13.10 - DYSPHAGIA, UNSPECIFIED Status: Chronic Priority: High Current Visit: Yes Qualifiers: Dysphagia type: unspecified Qualified Code(s): R13.10 - Dysphagia, unspecified (5) Hypertension SNOMED Code(s): 44307986 Code(s): I10 - ESSENTIAL (PRIMARY) HYPERTENSION Status: Chronic Priority : High Current Visit: Yes Qualifiers: Hypertension type: essential hypertension Qualified Code(s): I10 - Essential (primary) hypertension (6) Hyperuricemia SNOMED Code(s): 11471024 Code(s): E79.0 - HYPERURICEMIA W/O SIGNS OF INFLAM ARTHRIT AND TOPHACEOUS DIS Status: Chronic Priority: Medium Current Visit: Yes (7) Mild cognitive impairment SNOMED Code(s): 863326182 Code(s): G31.84 - MILD COGNITIVE IMPAIRMENT, SO STATED Status: Chronic Priority: Medium Current Visit: Yes - My Orders Last 24 Hours: My Active Orders 09/08/18 10:40 Sodium Chloride 0.9% [Saline Flush] 10 ml FLUSH ASDIRECTED PRN Sodium Chloride 0.9% [Saline Flush] 2.5 ml FLUSH ASDIRECTED PRN Peripheral IV Insertion Adult [OM.PC] Routine 09/08/18 11:00 Patient Status [ADT] Routine Blood Glucose Check, Bedside [RC] WITHMEALSANDBED Oxygen Therapy [RC] PRN Up With Assistance [RC] ASDIRECTED VTE/DVT Education [RC] PER UNIT ROUTINE Vital Signs [RC] Q4H OT Evaluation and Treatment [CONS] Routine PT Evaluation and Treatment [CONS] Routine TELEPHONE QUOTATION CLERK Evaluation and Treatment [CONS] Routine Acetaminophen [Tylenol] 650 mg PO Q4H PRN Docusate Sodium [Colace] 100 mg PO BID PRN Heparin Sodium 5,000 units SUBCUT Q8H Ondansetron [Zofran ODT] 4 mg PO Q4H PRN Blood Culture x2 Reflex Set [OM.PC] Stat Glucose Management Sub Q Reflex [OM.PC] Click To Edit Resuscitation Status Routine 09/08/18 11:02 Cardiac Monitoring [RC] CONTINUOUS 09/08/18 11:03 Diabetes Education [RC] Click to Edit 09/08/18 11:35 Telemetry Monitoring [Cardiac Monitoring] [RC] Q8H 09/08/18 12:00 Aspirin 81 mg PO DAILY ClonazePAM [KlonoPIN] 0.25 mg PO DAILY Folic Acid 1 mg PO DAILY OLANZapine [ZyPREXA] 20 mg PO DAILY Pantoprazole [ProTONIX] 40 mg PO DAILY Patient's Own Medication [Ptom] 1 each PO DAILY@1200 Potassium Chloride [Klor-Con M20] 40 meq PO DAILY amLODIPine [Norvasc] 10 mg PO DAILY predniSONE 5 mg PO DAILY 09/08/18 12:10 CULTURE BLOOD [BC] Stat 09/08/18 12:46 CULTURE BLOOD [BC] Stat 09/08/18 14:00 Levofloxacin/Dextrose 5%-Water [Levaquin in D5W 750 MG/150 ML] 750 mg Premix Bag 1 bag IV Q48H 09/08/18 16:47 Communication Order [RC] PRN 09/08/18 17:00 Donepezil [Aricept] 10 mg PO DAILY@1700 PARoxetine [Paxil] 40 mg PO DAILY@1700 Pramipexole [Mirapex] 0.125 mg PO DAILY@1700 atorvaSTATin [Lipitor] 20 mg PO DAILY@1700 09/08/18 17:30 Insulin Aspart [NovoLOG] See Protocol SUBCUT QIDACANDBED 09/08/18 [facility] [employer] Diet [DIET]
[2018-09-09] MEDS ORDERED: Furosemide 40 MG/4 ML VIAL IVPUSH ONE (08:58)
[2018-09-09] MEDS: OLANZapine 5 MG Tab PO SCH (09:10)
[2018-09-09] MEDS: Potassium Chloride 20 MEQ Tab.ER PO SCH (09:10)
[2018-09-09] MEDS: Metolazone 5 MG Tab PO SCH (09:11)
[2018-09-09] MEDS: Aspirin 81 MG Tab.Chew PO SCH (09:11)
[2018-09-09] MEDS: Folic Acid 1 MG Tab PO SCH (09:11)
[2018-09-09] MEDS: Pantoprazole 40 MG Tab.CR PO SCH (09:12)
[2018-09-09] MEDS: predniSONE 5 MG Tab PO SCH (09:12)
[2018-09-09] MEDS: amLODIPine 5 MG Tab PO SCH (09:20)
[2018-09-09] MEDS: ClonazePAM 0.5 MG Tab PO SCH (09:21)
[2018-09-09] MEDS: Albuterol/Ipratropium 3.0-0.5 MG/3 ML Neb Soln NEB SCH ×4 (10:04→22:31)
[2018-09-09] MEDS: Clindamycin Phosphate in D5W 600 MG in Premix Bag 50 BAG IV SCH ×4 (12:31→18:03)
[2018-09-09] MEDS: HYPROMELLOSE EYEBOTH SCH ×2 (13:02→21:07)
[2018-09-09] MEDS: DEXTRAN EYEBOTH SCH ×2 (13:02→21:07)
[2018-09-09] MEDS: Pregabalin 75 MG Cap PO SCH ×2 (14:29→21:02)
[2018-09-09] MEDS: Pramipexole 0.25 MG Tab PO SCH (17:12)
[2018-09-09] MEDS: atorvaSTATin 20 MG Tab PO SCH (17:12)
[2018-09-09] MEDS: PARoxetine 20 MG Tab PO SCH (17:12)
[2018-09-09] MEDS: Donepezil 10 MG Tab PO SCH (17:13)
[2018-09-09] MEDS ORDERED: Non-Formulary Medication 1 Each (Docusate Sodium [Colace] 50 MG) PO SCH (21:00)
[2018-09-09] MEDS: Polyethylene Glycol 3350 Powder 17 GM Packet PO SCH (21:03)
[2018-09-09] MEDS: Fish Oil/Omega-3 Fatty Acids 1 Gm Cap PO SCH (21:05)
[2018-09-10] MEDS: Albuterol/Ipratropium 3.0-0.5 MG/3 ML Neb Soln NEB SCH ×4 (02:50→15:46)
[2018-09-10] MEDS: Clindamycin Phosphate in D5W 600 MG in Premix Bag 50 BAG IV SCH ×6 (02:54→17:44)
[2018-09-10] MEDS: Heparin Sodium 5,000 Units/ML Vial SUBCUT SCH ×3 (02:55→19:41)
[2018-09-10] MEDS: HYPROMELLOSE EYEBOTH SCH ×3 (06:17→21:40)
[2018-09-10] MEDS: DEXTRAN EYEBOTH SCH ×3 (06:17→21:40)
[2018-09-10] MEDS: Pregabalin 75 MG Cap PO SCH ×4 (06:18→21:39)
[2018-09-10] MEDS: Insulin Aspart 100 Units/ML 3 ML Pen SUBCUT SCH ×4 (06:35→21:16)
[2018-09-10] MEDS: Polyethylene Glycol 3350 Powder 17 GM Packet PO SCH ×2 (08:00→21:40)
[2018-09-10] MEDS: Potassium Chloride 20 MEQ Tab.ER PO SCH (08:01)
[2018-09-10] MEDS: OLANZapine 5 MG Tab PO SCH (08:01)
[2018-09-10] MEDS: Aspirin 81 MG Tab.Chew PO SCH (08:02)
[2018-09-10] MEDS: amLODIPine 5 MG Tab PO SCH (08:02)
[2018-09-10] MEDS: Pantoprazole 40 MG Tab.CR PO SCH (08:03)
[2018-09-10] MEDS: predniSONE 5 MG Tab PO SCH (08:03)
[2018-09-10] MEDS: ClonazePAM 0.5 MG Tab PO SCH (08:05)
[2018-09-10] MEDS: Fish Oil/Omega-3 Fatty Acids 1 Gm Cap PO SCH ×2 (08:06→21:40)
[2018-09-10] MEDS: Folic Acid 1 MG Tab PO SCH (08:07)
--- NOTE | 2018-09-10 08:12 | PCM.PN ---
- General Info Date of Service: 09/10/18 Admission Dx/Problem (Free Text): Aspiration pneumonia Subjective Update: Sitting up in recliner, resting. Reports feeling ok today. Tired. Reports shortness of breath is better today. No chest pain. No other concerns. Functional Status: Reports: Pain Controlled, Tolerating Diet, Urinating. Denies : Ambulating - Review of Systems HEENT: Reports: No Symptoms. Denies: Headaches, Sore Throat Pulmonary: Reports: No Symptoms. Denies: Shortness of Breath, Cough, Sputum Cardiovascular: Denies: Chest Pain, Edema Gastrointestinal: Reports: No Symptoms. Denies: Abdominal Pain, Nausea, Vomiting Genitourinary: Reports: No Symptoms Skin: Reports: No Symptoms Neurological: Reports: No Symptoms Psychiatric: Reports: No Symptoms - Patient Data Vitals - Most Recent: Last Vital Signs Temp 96.8 F 09/10/18 07:58 Pulse 71 09/10/18 07:58 Resp 18 09/10/18 07:58 BP 148/74 H 09/10/18 08:02 Pulse Ox 96 09/10/18 03:00 Weight - Most Recent: 110.042 kg I&O - Last 24 Hours: Intake & Output 09/09/18 09/10/18 09/10/18 22:59 06:59 14:59 Intake Total 625 200 Balance 625 200 Lab Results Last 24 Hours: Laboratory Results - last 24 hr 09/09/18 09/09/18 09/09/18 Range/Units 05:49 05:49 05:49 WBC (4.0-11.0) K/uL RBC (4.50-5.90) M/uL Hgb (13.0-17.0) g/dL Hct (38.0-50.0) % MCV (80.0-98.0) fL MCH (27.0-32.0) pg MCHC (31.0-37.0) g/dL RDW Std Deviation (28.0-62.0) fl RDW Coeff of Mattie (11.0-15.0) % Plt Count (150-400) K/uL MPV (7.40-12.00) fL Neut % (Auto) (48.0-80.0) % Lymph % (Auto) (16.0-40.0) % [place] % (Auto) (0.0-15.0) % Eos % (Auto) (0.0-7.0) % Baso % (Auto) (0.0-1.5) % Neut # (Auto) (1.4-5.7) K/uL Lymph # (Auto) (0.6-2.4) K/uL [place] # (Auto) (0.0-0.8) K/uL Eos # (Auto) (0.0-0.7) K/uL Baso # (Auto) (0.0-0.1) K/uL Nucleated RBC % /100WBC Nucleated RBCs # K/uL Smear Path Review SENT TO PATHOLOGY Sodium (136-148) mmol/L Potassium (3.5-5.1) mmol/L Chloride (98-107) mmol/L Carbon Dioxide (21.0-32.0) mmol/L BUN (7.0-18.0) mg/dL Creatinine (0.8-1.3) mg/dL Est Cr Clr Drug Dosing mL/min Estimated GFR (MDRD) ml/min Glucose (74-106) mg/dL POC Glucose (60-110) mg/dL Calcium (8.5-10.1) mg/dL Phosphorus 2.9 (2.6-4.7) mg/dL Magnesium (1.8-2.4) mg/dL Total Bilirubin (0.2-1.0) mg/dL AST (15-37) IU/L ALT (14-63) IU/L Alkaline Phosphatase (46-116) U/L Total Protein (6.4-8.2) g/dL Albumin (3.4-5.0) g/dL Globulin (2.6-4.0) g/dL Albumin/Globulin Ratio (0.9-1.6) Vitamin D 25-Hydroxy 29.3 L (30.0-100.0) ng/mL 09/09/18 09/09/18 09/09/18 Range/Units 06:30 11:16 15:41 WBC (4.0-11.0) K/uL RBC (4.50-5.90) M/uL Hgb (13.0-17.0) g/dL Hct (38.0-50.0) % MCV (80.0-98.0) fL MCH (27.0-32.0) pg MCHC (31.0-37.0) g/dL RDW Std Deviation (28.0-62.0) fl RDW Coeff of Mattie (11.0-15.0) % Plt Count (150-400) K/uL MPV (7.40-12.00) fL Neut % (Auto) (48.0-80.0) % Lymph % (Auto) (16.0-40.0) % [place] % (Auto) (0.0-15.0) % Eos % (Auto) (0.0-7.0) % Baso % (Auto) (0.0-1.5) % Neut # (Auto) (1.4-5.7) K/uL Lymph # (Auto) (0.6-2.4) K/uL [place] # (Auto) (0.0-0.8) K/uL Eos # (Auto) (0.0-0.7) K/uL Baso # (Auto) (0.0-0.1) K/uL Nucleated RBC % /100WBC Nucleated RBCs # K/uL Smear Path Review Sodium (136-148) mmol/L Potassium (3.5-5.1) mmol/L Chloride (98-107) mmol/L Carbon Dioxide (21.0-32.0) mmol/L BUN (7.0-18.0) mg/dL Creatinine (0.8-1.3) mg/dL Est Cr Clr Drug Dosing mL/min Estimated GFR (MDRD) ml/min Glucose (74-106) mg/dL POC Glucose 124 H 156 H 273 H (60-110) mg/dL Calcium (8.5-10.1) mg/dL Phosphorus (2.6-4.7) mg/dL Magnesium (1.8-2.4) mg/dL Total Bilirubin (0.2-1.0) mg/dL AST (15-37) IU/L ALT (14-63) IU/L Alkaline Phosphatase (46-116) U/L Total Protein (6.4-8.2) g/dL Albumin (3.4-5.0) g/dL Globulin (2.6-4.0) g/dL Albumin/Globulin Ratio (0.9-1.6) Vitamin D 25-Hydroxy (30.0-100.0) ng/mL 09/09/18 09/10/18 09/10/18 Range/Units 21:01 05:48 05:48 WBC 9.85 (4.0-11.0) K/uL RBC 3.90 L (4.50-5.90) M/uL Hgb 10.8 L (13.0-17.0) g/dL Hct 35.6 L (38.0-50.0) % MCV 91.3 (80.0-98.0) fL MCH 27.7 (27.0-32.0) pg MCHC 30.3 L (31.0-37.0) g/dL RDW Std Deviation 56.4 (28.0-62.0) fl RDW Coeff of Mattie 17 H (11.0-15.0) % Plt Count 216 (150-400) K/uL MPV 11.00 (7.40-12.00) fL Neut % (Auto) 76.0 (48.0-80.0) % Lymph % (Auto) 7.9 L (16.0-40.0) % [place] % (Auto) 11.9 (0.0-15.0) % Eos % (Auto) 3.8 (0.0-7.0) % Baso % (Auto) 0.4 (0.0-1.5) % Neut # (Auto) 7.5 H (1.4-5.7) K/uL Lymph # (Auto) 0.8 (0.6-2.4) K/uL [place] # (Auto) 1.2 H (0.0-0.8) K/uL Eos # (Auto) 0.4 (0.0-0.7) K/uL Baso # (Auto) 0.0 (0.0-0.1) K/uL Nucleated RBC % 0.0 /100WBC Nucleated RBCs # 0 K/uL Smear Path Review Sodium 150 H (136-148) mmol/L Potassium 3.6 (3.5-5.1) mmol/L Chloride 109 H (98-107) mmol/L Carbon Dioxide 38.0 H (21.0-32.0) mmol/L BUN 39 H (7.0-18.0) mg/dL Creatinine 1.9 H (0.8-1.3) mg/dL Est Cr Clr Drug Dosing 31.50 mL/min Estimated GFR (MDRD) 34.5 ml/min Glucose 115 H (74-106) mg/dL POC Glucose 202 H (60-110) mg/dL Calcium 10.8 H (8.5-10.1) mg/dL Phosphorus 2.8 (2.6-4.7) mg/dL Magnesium 1.8 (1.8-2.4) mg/dL Total Bilirubin 0.2 (0.2-1.0) mg/dL AST 27 (15-37) IU/L ALT 28 (14-63) IU/L Alkaline Phosphatase 48 (46-116) U/L Total Protein 6.2 L (6.4-8.2) g/dL Albumin 2.2 L (3.4-5.0) g/dL Globulin 4.0 (2.6-4.0) g/dL Albumin/Globulin Ratio 0.6 L (0.9-1.6) Vitamin D 25-Hydroxy (30.0-100.0) ng/mL 09/10/18 Range/Units 06:22 WBC (4.0-11.0) K/uL RBC (4.50-5.90) M/uL Hgb (13.0-17.0) g/dL Hct (38.0-50.0) % MCV (80.0-98.0) fL MCH (27.0-32.0) pg MCHC (31.0-37.0) g/dL RDW Std Deviation (28.0-62.0) fl RDW Coeff of Mattie (11.0-15.0) % Plt Count (150-400) K/uL MPV (7.40-12.00) fL Neut % (Auto) (48.0-80.0) % Lymph % (Auto) (16.0-40.0) % [place] % (Auto) (0.0-15.0) % Eos % (Auto) (0.0-7.0) % Baso % (Auto) (0.0-1.5) % Neut # (Auto) (1.4-5.7) K/uL Lymph # (Auto) (0.6-2.4) K/uL [place] # (Auto) (0.0-0.8) K/uL Eos # (Auto) (0.0-0.7) K/uL Baso # (Auto) (0.0-0.1) K/uL Nucleated RBC % /100WBC Nucleated RBCs # K/uL Smear Path Review Sodium (136-148) mmol/L Potassium (3.5-5.1) mmol/L Chloride (98-107) mmol/L Carbon Dioxide (21.0-32.0) mmol/L BUN (7.0-18.0) mg/dL Creatinine (0.8-1.3) mg/dL Est Cr Clr Drug Dosing mL/min Estimated GFR (MDRD) ml/min Glucose (74-106) mg/dL POC Glucose 113 H (60-110) mg/dL Calcium (8.5-10.1) mg/dL Phosphorus (2.6-4.7) mg/dL Magnesium (1.8-2.4) mg/dL Total Bilirubin (0.2-1.0) mg/dL AST (15-37) IU/L ALT (14-63) IU/L Alkaline Phosphatase (46-116) U/L Total Protein (6.4-8.2) g/dL Albumin (3.4-5.0) g/dL Globulin (2.6-4.0) g/dL Albumin/Globulin Ratio (0.9-1.6) Vitamin D 25-Hydroxy (30.0-100.0) ng/mL Dinh Results Last 24 Hours: Microbiology 09/08/18 12:46 Aerobic Blood Culture - Preliminary Blood - Venous - Lab Draw NO GROWTH AFTER 1 DAY Anaerobic Blood Culture - Preliminary NO GROWTH AFTER 1 DAY 09/08/18 12:10 Aerobic Blood Culture - Preliminary Blood - Venous NO GROWTH AFTER 1 DAY Anaerobic Blood Culture - Preliminary NO GROWTH AFTER 1 DAY Med Orders - Current: Current Medications Acetaminophen (Tylenol) 650 mg PO Q4H PRN PRN Reason: Pain (Mild 1-3)/fever Last Admin: 09/09/18 00:13 Dose: 650 mg Albuterol/Ipratropium (Duoneb 3.0-0.5 Mg/3 Ml) 3 ml NEB Q4HRRT [facility] Last Admin: 09/10/18 05:59 Dose: 3 ml Amlodipine Besylate (Norvasc) 10 mg PO DAILY [facility] Last Admin: 09/10/18 08:02 Dose: 10 mg Aspirin (Aspirin) 81 mg PO DAILY [facility] Last Admin: 09/10/18 08:02 Dose: 81 mg Atorvastatin Calcium (Lipitor) 20 mg PO DAILY@1700 [facility] Last Admin: 09/09/18 17:12 Dose: 20 mg Clonazepam (Klonopin) 0.25 mg PO DAILY [facility] Last Admin: 09/10/18 08:05 Dose: 0.25 mg Docusate Sodium (Colace) 100 mg PO BID PRN PRN Reason: Constipation Donepezil HCl (Aricept) 10 mg PO DAILY@1700 [facility] Last Admin: 09/09/18 17:13 Dose: 10 mg Fish Oil (Fish Oil) 1 gm PO BID [facility] Last Admin: 09/10/18 08:06 Dose: 1 gm Folic Acid (Folic Acid) 1 mg PO DAILY [facility] Last Admin: 09/10/18 08:07 Dose: 1 mg Heparin Sodium (Porcine) (Heparin Sodium) 5,000 units SUBCUT Q8H [facility] Last Admin: 09/10/18 02:55 Dose: 5,000 units Levofloxacin/Dextrose 750 mg/ (Premix) 150 mls @ 100 mls/hr IV Q48H [facility] Last Admin: 09/08/18 14:03 Dose: 100 mls/hr Clindamycin Phosphate 600 mg/ (Premix) 50 mls @ 100 mls/hr IV Q8H [facility] Last Admin: 09/10/18 02:54 Dose: 100 mls/hr Insulin Aspart (Novolog) 0 unit SUBCUT QIDACANDBED [facility]; Protocol Last Admin: 09/10/18 06:35 Dose: Not Given Olanzapine (Zyprexa) 20 mg PO DAILY [facility] Last Admin: 09/10/18 08:01 Dose: 20 mg Ondansetron HCl (Zofran Odt) 4 mg PO Q4H PRN PRN Reason: nausea, able to take PO Pantoprazole Sodium (Protonix) 40 mg PO DAILY [facility] Last Admin: 09/10/18 08:03 Dose: 40 mg Paroxetine HCl (Paxil) 40 mg PO DAILY@1700 [facility] Last Admin: 09/09/18 17:12 Dose: 40 mg Fenofibrate 54 Mg 1 each PO DAILY@1200 [facility] Last Admin: 09/09/18 13:02 Dose: Not Given Dextran 70/Hypromellose [ Artificial Tears] 1 Each 1 each EYEBOTH TID [facility] Last Admin: 09/10/18 06:17 Dose: Not Given Polyethylene Glycol (Miralax) 17 gm PO BID [facility] Last Admin: 09/09/18 21:03 Dose: 17 gm Potassium Chloride (Klor-Con M20) 40 meq PO DAILY [facility] Last Admin: 09/10/18 08:01 Dose: 40 meq Pramipexole Dihydrochloride (Mirapex) 0.125 mg PO DAILY@1700 [facility] Last Admin: 09/09/18 17:12 Dose: 0.125 mg Prednisone (Prednisone) 5 mg PO DAILY [facility] Last Admin: 09/10/18 08:03 Dose: 5 mg Pregabalin (Lyrica) 75 mg PO TID [facility] Last Admin: 09/10/18 06:18 Dose: 75 mg Sodium Chloride (Saline Flush) 10 ml FLUSH ASDIRECTED PRN PRN Reason: Keep Vein Open Sodium Chloride (Saline Flush) 2.5 ml FLUSH ASDIRECTED PRN PRN Reason: Keep Vein Open Discontinued Medications Furosemide (Lasix) 40 mg PO DAILY [facility] Last Admin: 09/08/18 12:04 Dose: 40 mg Furosemide (Lasix) 40 mg IVPUSH NOW ONE Stop: 09/09/18 08:59 Last Admin: 09/09/18 10:22 Dose: 40 mg Sodium Chloride (Normal Saline) 1,000 mls @ 75 mls/hr IV ASDIRECTED [facility] Last Admin: 09/09/18 04:17 Dose: 75 mls/hr Magnesium Sulfate 4 gm/ Premix 100 mls @ 50 mls/hr IV ONETIME ONE Stop: 09/08/18 18:47 Last Admin: 09/08/18 17:26 Dose: 50 mls/hr Insulin Aspart (Novolog) 0 unit SUBCUT ACBREAKFASTANDBED [facility]; Protocol Metolazone (Zaroxolyn) 2.5 mg PO DAILY [facility] Last Admin: 09/09/18 09:11 Dose: 2.5 mg Non-Formulary Medication (Docusate Sodium [Colace]) 50 mg PO BID [facility] Oxycodone HCl (Oxycodone) 5 mg PO Q4H PRN PRN Reason: Pain (moderate 4-6) - Exam General: Alert, Cooperative, No Acute Distress Lungs: Clear to Auscultation, Normal Respiratory Effort. No: Decreased Breath Sounds, Crackles, Wheezing Cardiovascular: Regular Rate, Regular Rhythm GI/Abdominal Exam: Normal Bowel Sounds, Soft, Non-Tender, No Organomegaly, Other (obese abdomen) Extremities: Normal Inspection, Normal Range of Motion, Non-Tender, No Pedal Edema Neurological: No New Focal Deficit Psy/Mental Status: Alert, Normal Affect, Normal Mood - Problem List & Annotations (1) Aspiration pneumonia SNOMED Code(s): 525376090 Code(s): J69.0 - PNEUMONITIS DUE TO INHALATION OF FOOD AND VOMIT Status: Acute Priority: High Current Visit: Yes Qualifiers: Aspiration pneumonia type: due to gastric secretions Laterality: right Lung location: lower lobe of lung Qualified Code(s): J69.0 - Pneumonitis due to inhalation of food and vomit (2) Dysphagia SNOMED Code(s): 72862939, 594581273 Code(s): R13.10 - DYSPHAGIA, UNSPECIFIED Status: Chronic Priority: High Current Visit: Yes Qualifiers: Dysphagia type: unspecified Qualified Code(s): R13.10 - Dysphagia, unspecified (3) Hypercalcemia SNOMED Code(s): 99938567 Code(s): E83.52 - HYPERCALCEMIA Status: Acute Current Visit: Yes (4) Heart failure SNOMED Code(s): 16267914 Code(s): I50.9 - HEART FAILURE, UNSPECIFIED Status: Chronic Current Visit : Yes Qualifiers: Heart failure type: unspecified Heart failure chronicity: acute on chronic Qualified Code(s): I50.9 - Heart failure, unspecified (5) Generalized anxiety disorder SNOMED Code(s): 47452014 Code(s): F41.1 - GENERALIZED ANXIETY DISORDER Status: Chronic Current Visit: Yes (6) Gout SNOMED Code(s): 56817910 Code(s): M10.9 - GOUT, UNSPECIFIED Status: Chronic Current Visit: Yes (7) History of TIA (transient ischemic attack) and stroke SNOMED Code(s): 293180893, 172087423, 379803133 Code(s): Z86.73 - PRSNL HX OF TIA (TIA), AND CEREB INFRC W/O RESID DEFICITS Status: Chronic Current Visit: Yes (8) Hyperlipidemia SNOMED Code(s): 12271447 Code(s): E78.5 - HYPERLIPIDEMIA, UNSPECIFIED Status: Chronic Current Visit: Yes (9) Neuropathy SNOMED Code(s): 467736668 Code(s): G62.9 - POLYNEUROPATHY, UNSPECIFIED Status: Chronic Current Visit: Yes (10) Psoriasis SNOMED Code(s): 5637281 Code(s): L40.9 - PSORIASIS, UNSPECIFIED Status: Chronic Current Visit: Yes (11) Schizoaffective disorder SNOMED Code(s): 57208382 Code(s): F25.9 - SCHIZOAFFECTIVE DISORDER, UNSPECIFIED Status: Chronic Current Visit: Yes (12) Seizure disorder SNOMED Code(s): 486812486 Code(s): G40.909 - EPILEPSY, UNSP, NOT INTRACTABLE, WITHOUT STATUS EPILEPTICUS Status: Chronic Current Visit: Yes (13) Sleep apnea SNOMED Code(s): 55257319 Code(s): G47.30 - SLEEP APNEA, UNSPECIFIED Status: Chronic Current Visit : Yes (14) Chronic kidney disease, stage 3 SNOMED Code(s): 803637919 Code(s): N18.3 - CHRONIC KIDNEY DISEASE, STAGE 3 (MODERATE) Status: Chronic Priority: High Current Visit: Yes (15) Diabetes mellitus type 2 in obese SNOMED Code(s): 08798713 Code(s): E11.69 - TYPE 2 DIABETES MELLITUS WITH OTHER SPECIFIED COMPLICATION ; E66.9 - OBESITY, UNSPECIFIED Status: Chronic Priority: High Current Visit: Yes (16) Hypertension SNOMED Code(s): 67346673 Code(s): I10 - ESSENTIAL (PRIMARY) HYPERTENSION Status: Chronic Priority : High Current Visit: Yes Qualifiers: Hypertension type: essential hypertension Qualified Code(s): I10 - Essential (primary) hypertension (17) Hyperuricemia SNOMED Code(s): 57396654 Code(s): E79.0 - HYPERURICEMIA W/O SIGNS OF INFLAM ARTHRIT AND TOPHACEOUS DIS Status: Chronic Priority: Medium Current Visit: Yes (18) Mild cognitive impairment SNOMED Code(s): 842485632 Code(s): G31.84 - MILD COGNITIVE IMPAIRMENT, SO STATED Status: Chronic Priority: Medium Current Visit: Yes (19) Oxygen dependent SNOMED Code(s): 097666312238 Code(s): Z99.81 - DEPENDENCE ON SUPPLEMENTAL OXYGEN Status: Chronic Current Visit: Yes - Problem List Review Problem List Initiated/Reviewed/Updated: Yes - My Orders Last 24 Hours: My Active Orders 09/09/18 08:59 Echo Comp wo Cont [US] Routine 09/09/18 09:02 RT Aerosol Therapy [RC] ASDIRECTED 09/09/18 10:00 Albuterol/Ipratropium [DuoNeb 3.0-0.5 MG/3 ML] 3 ml NEB Q4HRRT 09/09/18 10:18 Incentive Spirometry [RT Incentive Spirometry] [RC] Q1HWA RT Acapella [RESPCARE] Routine 09/09/18 10:29 CALCIUM, URINE Routine 09/09/18 10:45 Clindamycin Phosphate in D5W [Cleocin in D5W] 600 mg Premix Bag 50 bag IV Q8H 09/09/18 10:52 CULTURE SPUTUM + SMEAR [RM] Routine 09/09/18 11:11 Daily Weight [Height and Weight] [RC] DAILY Intake and Output Strict [RC] Q12H 09/09/18 14:00 Patient's Own Medication [Ptom] 1 each EYEBOTH TID Pregabalin [Lyrica] 75 mg PO TID 09/09/18 21:00 Fish Oil/[place]-3 Fatty Acids [Fish Oil] 1 gm PO BID Polyethylene Glycol 3350 [MiraLAX] 17 gm PO BID 09/11/18 05:11 CBC WITH AUTO DIFF [HEME] AM COMPREHENSIVE METABOLIC PN,CMP [CHEM] AM MAGNESIUM [CHEM] AM PHOSPHORUS [CHEM] AM 09/12/18 05:11 CBC WITH AUTO DIFF [HEME] AM COMPREHENSIVE METABOLIC PN,CMP [CHEM] AM MAGNESIUM [CHEM] AM PHOSPHORUS [CHEM] AM 09/13/18 05:11 CBC WITH AUTO DIFF [HEME] AM COMPREHENSIVE METABOLIC PN,CMP [CHEM] AM MAGNESIUM [CHEM] AM PHOSPHORUS [CHEM] AM - Plan Plan:: This 78 year old male with multiple medical comorbidities admitted with aspiration pneumonia 1. Aspiration Pneumonia:Improved today, no further SOB. Continue Levaquin and Clindamycin. BC neg x 1 day. Attempt to obtain sputum culture if possible. Continue with Mckin[place] thick liquids, spoke with Dr Garay yesterday, will need modief barium swallow study as outpatient, she is aware of this. Pills with pureed, no two consistency foods and remain on mechanical soft. Unable to do modified barium swallow due to no in house radiology available this week. Pulmonary toilet, Duonebs, IS and flutter valve ordered. 2. CHF: Improved. No further SOB LS clear. Restart PO Lasix today. Monitor.ECHO , reveals EF 50-55%, impair relaxation grade 1 pattern of LV diastolic filling, No significant valve disease normal R ventricular systolic pressure. Monitor fluid status closely. Monitor on telemetry. Daily weights and strict I/O. Oxygen dependent at detention 2-4 L NC. 3. Hypercalcemia: Corrected calcium is 12. Calcium supplementation stopped per [facility] prior to arrival. Holding Metolazone. Vitamin D level below normal. , PTH, urine calcium, SPEP, phosphorous and peripheral blood smear still pending. 5. Hypernatremia: Will start D5w 50 ml/hr and recheck this afternoon. Monitor. 5. CKD Stage 3: Monitor. Slightly improved. Avoid nephrotoxic medications. Medications renally dosed. 6. Dm Type 2: Novolog SSI, BS well controlled. Monitor. ADA diet 7. HTN: Improved. Continue Amlodipine. Lasix po restarted. 8. Psorasis: Severe with skin picking disorder. Continue Prednisone. Monitor. 9. Schizoaffective disorder: Continue Paxil and Zyprexa. Stable. VTE prophylaxis: Heparin Dispo: 2-4 days pending improvement.
[2018-09-10] MEDS: Furosemide 40 MG Tab PO SCH (10:29)
[2018-09-10] MEDS ORDERED: Dextrose 5% in Water 1,000 ML IV SCH (10:30)
[2018-09-10] MEDS ORDERED: Albuterol/Ipratropium 3.0-0.5 MG/3 ML Neb Soln NEB PRN (14:15)
[2018-09-10] MEDS: Levofloxacin/Dextrose 5%-Water 750 MG in Premix Bag 1 BAG IV SCH (14:46)
[2018-09-10] MEDS: PARoxetine 20 MG Tab PO SCH (17:36)
[2018-09-10] MEDS: Pramipexole 0.25 MG Tab PO SCH (17:36)
[2018-09-10] MEDS: atorvaSTATin 20 MG Tab PO SCH (17:37)
[2018-09-10] MEDS: Donepezil 10 MG Tab PO SCH (17:37)
[2018-09-11] MEDS: Clindamycin Phosphate in D5W 600 MG in Premix Bag 50 BAG IV SCH ×4 (03:36→10:50)
[2018-09-11] MEDS: Heparin Sodium 5,000 Units/ML Vial SUBCUT SCH ×2 (03:37→10:28)
[2018-09-11] MEDS: DEXTRAN EYEBOTH SCH ×2 (06:08→13:31)
[2018-09-11] MEDS: HYPROMELLOSE EYEBOTH SCH ×2 (06:08→13:31)
[2018-09-11] MEDS: Pregabalin 75 MG Cap PO SCH ×2 (06:09→14:28)
[2018-09-11] MEDS: Insulin Aspart 100 Units/ML 3 ML Pen SUBCUT SCH ×2 (08:02→11:51)
[2018-09-11] MEDS: amLODIPine 5 MG Tab PO SCH (09:47)
[2018-09-11] MEDS: Potassium Chloride 20 MEQ Tab.ER PO SCH (09:51)
[2018-09-11] MEDS: Pantoprazole 40 MG Tab.CR PO SCH (09:57)
[2018-09-11] MEDS: Folic Acid 1 MG Tab PO SCH (09:57)
[2018-09-11] MEDS: Furosemide 40 MG Tab PO SCH (09:57)
[2018-09-11] MEDS: OLANZapine 5 MG Tab PO SCH (09:57)
[2018-09-11] MEDS: predniSONE 5 MG Tab PO SCH (09:59)
[2018-09-11] MEDS: Aspirin 81 MG Tab.Chew PO SCH (10:00)
[2018-09-11] MEDS: Polyethylene Glycol 3350 Powder 17 GM Packet PO SCH (10:00)
[2018-09-11] MEDS: Fish Oil/Omega-3 Fatty Acids 1 Gm Cap PO SCH (10:19)
[2018-09-11] MEDS: ClonazePAM 0.5 MG Tab PO SCH (10:20)
--- NOTE | 2018-09-11 10:41 | PCM.DCSUM1 ---
Discharge Summary - Hospital Course Brief History: The patient is a 78-year-old gentleman who is medically complex and had been admitted directly from [facility]. The patient is a poor historian but transferring physician had been concerned about the patient having difficulty with aspiration pneumonia. There is also concerned about the patient having swallowing difficulties. According to records he had been previously on a dysphagia diet. The patient himself says that he has pneumonia but has denied any symptoms. He has been complaining specifically of pain around the skin of his right ear and painful right toenail. The patient has a history of severe psoriasis to include destruction of that his fingernails and toenails. He has denied any fever or chills. The patient reports that he has had a cough when drinking some liquids. He has no other complaints at this time. Diagnosis: Stroke: No - Discharge Data Discharge Date: 09/11/18 Discharge Disposition: DC/Tfer to [facility] 03 Condition: Good - Discharge Diagnosis/Problem(s) (1) Aspiration pneumonia SNOMED Code(s): 141420486 ICD Code: J69.0 - PNEUMONITIS DUE TO INHALATION OF FOOD AND VOMIT Status: Acute Priority: High Current Visit: Yes Qualifiers: Aspiration pneumonia type: due to gastric secretions Laterality: right Lung location: lower lobe of lung Qualified Code(s): J69.0 - Pneumonitis due to inhalation of food and vomit (2) Dysphagia SNOMED Code(s): 64214434, 044936420 ICD Code: R13.10 - DYSPHAGIA, UNSPECIFIED Status: Chronic Priority: High Current Visit: Yes Qualifiers: Dysphagia type: unspecified Qualified Code(s): R13.10 - Dysphagia, unspecified (3) Hypercalcemia SNOMED Code(s): 22788949 ICD Code: E83.52 - HYPERCALCEMIA Status: Acute Current Visit: Yes (4) Heart failure SNOMED Code(s): 24504021 ICD Code: I50.9 - HEART FAILURE, UNSPECIFIED Status: Chronic Current Visit: Yes Qualifiers: Heart failure type: unspecified Heart failure chronicity: acute on chronic Qualified Code(s): I50.9 - Heart failure, unspecified (5) Generalized anxiety disorder SNOMED Code(s): 27018286 ICD Code: F41.1 - GENERALIZED ANXIETY DISORDER Status: Chronic Current Visit: Yes (6) Gout SNOMED Code(s): 73840282 ICD Code: M10.9 - GOUT, UNSPECIFIED Status: Chronic Current Visit: Yes (7) History of TIA (transient ischemic attack) and stroke SNOMED Code(s): 498920476, 159714772, 782122530 ICD Code: Z86.73 - PRSNL HX OF TIA (TIA), AND CEREB INFRC W/O RESID DEFICITS Status: Chronic Current Visit: Yes (8) Hyperlipidemia SNOMED Code(s): 13605413 ICD Code: E78.5 - HYPERLIPIDEMIA, UNSPECIFIED Status: Chronic Current Visit: Yes (9) Neuropathy SNOMED Code(s): 663542309 ICD Code: G62.9 - POLYNEUROPATHY, UNSPECIFIED Status: Chronic Current Visit: Yes (10) Psoriasis SNOMED Code(s): 8924917 ICD Code: L40.9 - PSORIASIS, UNSPECIFIED Status: Chronic Current Visit: Yes (11) Schizoaffective disorder SNOMED Code(s): 31641060 ICD Code: F25.9 - SCHIZOAFFECTIVE DISORDER, UNSPECIFIED Status: Chronic Current Visit: Yes (12) Seizure disorder SNOMED Code(s): 721822108 ICD Code: G40.909 - EPILEPSY, UNSP, NOT INTRACTABLE, WITHOUT STATUS EPILEPTICUS Status: Chronic Current Visit: Yes (13) Sleep apnea SNOMED Code(s): 70367606 ICD Code: G47.30 - SLEEP APNEA, UNSPECIFIED Status: Chronic Current Visit : Yes (14) Chronic kidney disease, stage 3 SNOMED Code(s): 423728828 ICD Code: N18.3 - CHRONIC KIDNEY DISEASE, STAGE 3 (MODERATE) Status: Chronic Priority: High Current Visit: Yes (15) Diabetes mellitus type 2 in obese SNOMED Code(s): 62705505 ICD Code: E11.69 - TYPE 2 DIABETES MELLITUS WITH OTHER SPECIFIED COMPLICATION ; E66.9 - OBESITY, UNSPECIFIED Status: Chronic Priority: High Current Visit: Yes (16) Hypertension SNOMED Code(s): 87127543 ICD Code: I10 - ESSENTIAL (PRIMARY) HYPERTENSION Status: Chronic Priority : High Current Visit: Yes Qualifiers: Hypertension type: essential hypertension Qualified Code(s): I10 - Essential (primary) hypertension (17) Hyperuricemia SNOMED Code(s): 01385327 ICD Code: E79.0 - HYPERURICEMIA W/O SIGNS OF INFLAM ARTHRIT AND TOPHACEOUS DIS Status: Chronic Priority: Medium Current Visit: Yes (18) Mild cognitive impairment SNOMED Code(s): 454227532 ICD Code: G31.84 - MILD COGNITIVE IMPAIRMENT, SO STATED Status: Chronic Priority: Medium Current Visit: Yes (19) Oxygen dependent SNOMED Code(s): 107573586431 ICD Code: Z99.81 - DEPENDENCE ON SUPPLEMENTAL OXYGEN Status: Chronic Current Visit: Yes - Patient Summary/Data Consults: Consultations 09/08/18 11:00 OT Evaluation and Treatment [CONS] Routine PT Evaluation and Treatment [CONS] Routine HIGH RAW SUGAR [employer]ILER Evaluation and Treatment [CONS] Routine - Patient Instructions Diet: Mechanical Soft (nectar thick liquids, small sips only, no large drinks), Pureed (pills in pureed.) Diet, Other: Monitor when resident is eating to insure small sips and no coughing. Activity: As Tolerated Showering/Bathing: May Shower Notify Provider of: Fever, Increased Pain, Swelling and Redness, Drainage, Nausea and/or Vomiting - Discharge Plan *PRESCRIPTION DRUG MONITORING PROGRAM REVIEWED*: Not Applicable *COPY OF PRESCRIPTION DRUG MONITORING REPORT IN PATIENT ALOK: Not Applicable Prescriptions/Med Rec: levoFLOXacin [Levaquin] 750 mg PO Q48H #2 tab Home Medications: Home Meds Aspirin 81 mg PO DAILY 09/08/18 [History] Cholecalciferol (Vitamin D3) [Vitamin D3] 1,000 unit PO DAILY 09/08/18 [History] Dextran 70/Hypromellose [Artificial Tears] 1 each EYEBOTH TID 09/08/18 [History] Docusate Sodium [Colace] 50 mg PO BID 09/08/18 [History] Donepezil HCl [Aricept] 10 mg PO 1700 09/08/18 [History] Fenofibrate 54 mg PO 1200 09/08/18 [History] Fish Oil/[place]-3 Fatty Acids [Fish Oil 1,000 MG] 1 each PO BID 09/08/18 [History ] Folic Acid 1 mg PO DAILY 09/08/18 [History] Furosemide 40 mg PO DAILY 09/08/18 [History] Ipratropium/Albuterol Sulfate [Iprat-Albut 0.5-3(2.5) MG/3 ML] 3 ml IH Q6H PRN 09/08/18 [History] PARoxetine HCl [Paxil] 40 mg PO 1700 09/08/18 [History] Pantoprazole Sodium 40 mg PO DAILY 09/08/18 [History] Polyethylene Glycol 3350 [MiraLAX] 17 gm PO BID 09/08/18 [History] Potassium Bicarb/Potassium Chl [Potassium Chloride] 40 meq PO DAILY 09/08/18 [ History] Pramipexole Di-HCl [Mirapex] 0.125 mg PO 1700 09/08/18 [History] Pregabalin [Lyrica] 75 mg PO TID 09/08/18 [History] amLODIPine Besylate [Norvasc] 10 mg PO DAILY 09/08/18 [History] atorvaSTATin Calcium [Lipitor] 20 mg PO 1700 09/08/18 [History] clonazePAM [Clonazepam] 0.25 mg PO DAILY 09/08/18 [History] predniSONE 5 mg PO DAILY 09/08/18 [History] [place] Tar [Psoriasin] 21.25 gm TP 09/09/18 [History] levoFLOXacin [Levaquin] 750 mg PO Q48H #2 tab 09/11/18 [Rx] Oxygen Therapy Mode: Nasal Cannula Oxygen Flow Rate (L/min): 2 Patient Handouts: Levofloxacin tablets, Aspiration Pneumonia - Discharge Summary/Plan Comment DC Time >30 min.: Yes Discharge Summary/Plan Comment: Discharge Diagnoses: Aspiration pneumonia Dysphagia hypercalcemia CHF diastolic YURIY Gout Hx TIA Hyperlipidemia Schizoaffective disorder Seizure disorder CKD stage 3 DM Type 2 Jairon was admitted directly from [facility] due to concerns with aspiration pneumonia. Initially the thought was to be evaluated by ST and have modified barium swallow study. ST did assess patient and felt he had little aspiration with small sips. With large drinks he was noted to have strong cough. It was recommended to stay on [place] thick liquids with mechanical soft diet, pills in pureed and to be monitored during meal time to limit risk of aspiration with large amounts of food or drinks to reduce chance of aspiration. He has done well here. LS clear. He was treated with Levaquin and Clindamycin. Leukocytosis improved. Renal function also improved with some diuresis with IV Lasix. Hypercalcemia was worked up somewhat, many labs still pending and will be faxed when available. I did speak with Dr Zayas who is aware we stopped Metolazone and recommended watching calcium, today it remains at corrected, 11. I will continue all other medications as previously prescribed. Levaquin for 4 more days to continue 7 day course. - General Info Date of Service: 09/11/18 Admission Dx/Problem (Free Text: Aspiration pneumonia Subjective Update: In bed, reports tired, but just waking up this morning for the first time. No chest pain or SOB. No cough. No concerns at this time. Functional Status: Reports: Tolerating Diet, Urinating - Review of Systems General: Reports: Fatigue. Denies: Fever, Weakness, Malaise HEENT: Reports: No Symptoms. Denies: Headaches, Sore Throat, Visual Changes Pulmonary: Reports: No Symptoms. Denies: Shortness of Breath, Cough, Wheezing Cardiovascular: Reports: No Symptoms. Denies: Chest Pain, Edema Gastrointestinal: Reports: No Symptoms. Denies: Abdominal Pain, Nausea, Vomiting Genitourinary: Reports: No Symptoms Musculoskeletal: Reports: No Symptoms Skin: Reports: No Symptoms Neurological: Reports: No Symptoms Psychiatric: Reports: No Symptoms - Patient Data Vitals - Most Recent: Last Vital Signs Temp 98.4 F 09/11/18 07:42 Pulse 82 09/11/18 07:42 Resp 20 09/11/18 07:42 BP 147/63 H 09/11/18 09:47 Pulse Ox 97 09/11/18 07:42 Weight - Most Recent: 115.938 kg I&O - Last 24 hours: Intake & Output 09/10/18 09/11/18 09/11/18 22:59 06:59 14:59 Intake Total 480 1187 Balance 480 1187 Lab Results - Last 24 hrs: Laboratory Results - last 24 hr 09/10/18 09/10/18 09/10/18 Range/Units 11:36 15:31 15:58 WBC (4.0-11.0) K/uL RBC (4.50-5.90) M/uL Hgb (13.0-17.0) g/dL Hct (38.0-50.0) % MCV (80.0-98.0) fL MCH (27.0-32.0) pg MCHC (31.0-37.0) g/dL RDW Std Deviation (28.0-62.0) fl RDW Coeff of Mattie (11.0-15.0) % Plt Count (150-400) K/uL MPV (7.40-12.00) fL Add Manual Diff Neutrophils % (Manual) (48.0-80.0) % Band Neutrophils % % Lymphocytes % (Manual) (16.0-40.0) % Monocytes % (Manual) (0.0-15.0) % Eosinophils % (Manual) (0.0-7.0) % Basophils % (Manual) (0.0-1.5) % Nucleated RBC % /100WBC Absolute Seg Neuts (1.4-5.7) Band Neutrophils # Lymphocytes # (Manual) (0.6-2.4) Monocytes # (Manual) (0.0-0.8) Eosinophils # (Manual) (0.0-0.7) Basophils # (Manual) (0.0-0.1) Nucleated RBCs # K/uL Sodium 148 (136-148) mmol/L Potassium 4.5 (3.5-5.1) mmol/L Chloride 108 H (98-107) mmol/L Carbon Dioxide 33.9 H (21.0-32.0) mmol/L BUN 37 H (7.0-18.0) mg/dL Creatinine 1.8 H (0.8-1.3) mg/dL Est Cr Clr Drug Dosing 33.25 mL/min Estimated GFR (MDRD) 36.8 ml/min Glucose 246 H (74-106) mg/dL POC Glucose 232 H 230 H (60-110) mg/dL Calcium 10.6 H (8.5-10.1) mg/dL Phosphorus (2.6-4.7) mg/dL Magnesium (1.8-2.4) mg/dL Total Bilirubin (0.2-1.0) mg/dL AST (15-37) IU/L ALT (14-63) IU/L Alkaline Phosphatase (46-116) U/L Total Protein (6.4-8.2) g/dL Albumin (3.4-5.0) g/dL Globulin (2.6-4.0) g/dL Albumin/Globulin Ratio (0.9-1.6) 09/10/18 09/11/18 09/11/18 Range/Units 21:03 05:10 05:10 WBC 10.76 (4.0-11.0) K/uL RBC 3.76 L (4.50-5.90) M/uL Hgb 10.3 L (13.0-17.0) g/dL Hct 34.3 L (38.0-50.0) % MCV 91.2 (80.0-98.0) fL MCH 27.4 (27.0-32.0) pg MCHC 30.0 L (31.0-37.0) g/dL RDW Std Deviation 56.2 (28.0-62.0) fl RDW Coeff of Mattie 17 H (11.0-15.0) % Plt Count 220 (150-400) K/uL MPV 11.70 (7.40-12.00) fL Add Manual Diff YES Neutrophils % (Manual) 81 H (48.0-80.0) % Band Neutrophils % 1 % Lymphocytes % (Manual) 9 L (16.0-40.0) % Monocytes % (Manual) 6 (0.0-15.0) % Eosinophils % (Manual) 2 (0.0-7.0) % Basophils % (Manual) 1 (0.0-1.5) % Nucleated RBC % 0.0 /100WBC Absolute Seg Neuts 8.7 H (1.4-5.7) Band Neutrophils # 0.1 Lymphocytes # (Manual) 1.0 (0.6-2.4) Monocytes # (Manual) 0.6 (0.0-0.8) Eosinophils # (Manual) 0.2 (0.0-0.7) Basophils # (Manual) 0.1 (0.0-0.1) Nucleated RBCs # 0 K/uL Sodium 146 (136-148) mmol/L Potassium 3.9 (3.5-5.1) mmol/L Chloride 107 (98-107) mmol/L Carbon Dioxide 34.7 H (21.0-32.0) mmol/L BUN 36 H (7.0-18.0) mg/dL Creatinine 1.8 H (0.8-1.3) mg/dL Est Cr Clr Drug Dosing 33.25 mL/min Estimated GFR (MDRD) 36.8 ml/min Glucose 114 H (74-106) mg/dL POC Glucose 131 H (60-110) mg/dL Calcium 10.5 H (8.5-10.1) mg/dL Phosphorus 1.9 L (2.6-4.7) mg/dL Magnesium 1.6 L (1.8-2.4) mg/dL Total Bilirubin 0.2 (0.2-1.0) mg/dL AST 21 (15-37) IU/L ALT 27 (14-63) IU/L Alkaline Phosphatase 46 (46-116) U/L Total Protein 5.8 L (6.4-8.2) g/dL Albumin 2.1 L (3.4-5.0) g/dL Globulin 3.7 (2.6-4.0) g/dL Albumin/Globulin Ratio 0.6 L (0.9-1.6) 09/11/18 Range/Units 05:58 WBC (4.0-11.0) K/uL RBC (4.50-5.90) M/uL Hgb (13.0-17.0) g/dL Hct (38.0-50.0) % MCV (80.0-98.0) fL MCH (27.0-32.0) pg MCHC (31.0-37.0) g/dL RDW Std Deviation (28.0-62.0) fl RDW Coeff of Mattie (11.0-15.0) % Plt Count (150-400) K/uL MPV (7.40-12.00) fL Add Manual Diff Neutrophils % (Manual) (48.0-80.0) % Band Neutrophils % % Lymphocytes % (Manual) (16.0-40.0) % Monocytes % (Manual) (0.0-15.0) % Eosinophils % (Manual) (0.0-7.0) % Basophils % (Manual) (0.0-1.5) % Nucleated RBC % /100WBC Absolute Seg Neuts (1.4-5.7) Band Neutrophils # Lymphocytes # (Manual) (0.6-2.4) Monocytes # (Manual) (0.0-0.8) Eosinophils # (Manual) (0.0-0.7) Basophils # (Manual) (0.0-0.1) Nucleated RBCs # K/uL Sodium (136-148) mmol/L Potassium (3.5-5.1) mmol/L Chloride (98-107) mmol/L Carbon Dioxide (21.0-32.0) mmol/L BUN (7.0-18.0) mg/dL Creatinine (0.8-1.3) mg/dL Est Cr Clr Drug Dosing mL/min Estimated GFR (MDRD) ml/min Glucose (74-106) mg/dL POC Glucose 120 H (60-110) mg/dL Calcium (8.5-10.1) mg/dL Phosphorus (2.6-4.7) mg/dL Magnesium (1.8-2.4) mg/dL Total Bilirubin (0.2-1.0) mg/dL AST (15-37) IU/L ALT (14-63) IU/L Alkaline Phosphatase (46-116) U/L Total Protein (6.4-8.2) g/dL Albumin (3.4-5.0) g/dL Globulin (2.6-4.0) g/dL Albumin/Globulin Ratio (0.9-1.6) MAURICIO Results - Last 24 hrs: Microbiology 09/08/18 12:46 Aerobic Blood Culture - Preliminary Blood - Venous - Lab Draw NO GROWTH AFTER 2 DAYS Anaerobic Blood Culture - Preliminary NO GROWTH AFTER 2 DAYS 09/08/18 12:10 Aerobic Blood Culture - Preliminary Blood - Venous NO GROWTH AFTER 2 DAYS Anaerobic Blood Culture - Preliminary NO GROWTH AFTER 2 DAYS Med Orders - Current: Current Medications Acetaminophen (Tylenol) 650 mg PO Q4H PRN PRN Reason: Pain (Mild 1-3)/fever Last Admin: 09/09/18 00:13 Dose: 650 mg Albuterol/Ipratropium (Duoneb 3.0-0.5 Mg/3 Ml) 3 ml NEB Q4HRRT PRN PRN Reason: SOB/wheezing Amlodipine Besylate (Norvasc) 10 mg PO DAILY [facility] Last Admin: 09/11/18 09:47 Dose: 10 mg Aspirin (Aspirin) 81 mg PO DAILY [facility] Last Admin: 09/11/18 10:00 Dose: 81 mg Atorvastatin Calcium (Lipitor) 20 mg PO DAILY@1700 [facility] Last Admin: 09/10/18 17:37 Dose: 20 mg Clonazepam (Klonopin) 0.25 mg PO DAILY [facility] Last Admin: 09/11/18 10:20 Dose: 0.25 mg Docusate Sodium (Colace) 100 mg PO BID PRN PRN Reason: Constipation Donepezil HCl (Aricept) 10 mg PO DAILY@1700 [facility] Last Admin: 09/10/18 17:37 Dose: 10 mg Fish Oil (Fish Oil) 1 gm PO BID [facility] Last Admin: 09/11/18 10:19 Dose: 1 gm Folic Acid (Folic Acid) 1 mg PO DAILY [facility] Last Admin: 09/11/18 09:57 Dose: 1 mg Furosemide (Lasix) 40 mg PO DAILY [facility] Last Admin: 09/11/18 09:57 Dose: 40 mg Heparin Sodium (Porcine) (Heparin Sodium) 5,000 units SUBCUT Q8H [facility] Last Admin: 09/11/18 10:28 Dose: 5,000 units Levofloxacin/Dextrose 750 mg/ (Premix) 150 mls @ 100 mls/hr IV Q48H [facility] Last Admin: 09/10/18 14:46 Dose: 100 mls/hr Clindamycin Phosphate 600 mg/ (Premix) 50 mls @ 100 mls/hr IV Q8H [facility] Last Admin: 09/11/18 03:36 Dose: 100 mls/hr Insulin Aspart (Novolog) 0 unit SUBCUT QIDACANDBED [facility]; Protocol Last Admin: 09/11/18 08:02 Dose: Not Given Olanzapine (Zyprexa) 20 mg PO DAILY [facility] Last Admin: 09/11/18 09:57 Dose: 20 mg Ondansetron HCl (Zofran Odt) 4 mg PO Q4H PRN PRN Reason: nausea, able to take PO Pantoprazole Sodium (Protonix) 40 mg PO DAILY [facility] Last Admin: 09/11/18 09:57 Dose: 40 mg Paroxetine HCl (Paxil) 40 mg PO DAILY@1700 [facility] Last Admin: 09/10/18 17:36 Dose: 40 mg Fenofibrate 54 Mg 1 each PO DAILY@1200 [facility] Last Admin: 09/10/18 11:53 Dose: Not Given Dextran 70/Hypromellose [ Artificial Tears] 1 Each 1 each EYEBOTH TID [facility] Last Admin: 09/11/18 06:08 Dose: Not Given Polyethylene Glycol (Miralax) 17 gm PO BID [facility] Last Admin: 09/11/18 10:00 Dose: 17 gm Potassium Chloride (Klor-Con M20) 40 meq PO DAILY [facility] Last Admin: 09/11/18 09:51 Dose: 40 meq Pramipexole Dihydrochloride (Mirapex) 0.125 mg PO DAILY@1700 [facility] Last Admin: 09/10/18 17:36 Dose: 0.125 mg Prednisone (Prednisone) 5 mg PO DAILY [facility] Last Admin: 09/11/18 09:59 Dose: 5 mg Pregabalin (Lyrica) 75 mg PO TID [facility] Last Admin: 09/11/18 06:09 Dose: 75 mg Sodium Chloride (Saline Flush) 10 ml FLUSH ASDIRECTED PRN PRN Reason: Keep Vein Open Sodium Chloride (Saline Flush) 2.5 ml FLUSH ASDIRECTED PRN PRN Reason: Keep Vein Open Discontinued Medications Albuterol/Ipratropium (Duoneb 3.0-0.5 Mg/3 Ml) 3 ml NEB Q4HRRT [facility] Last Admin: 09/10/18 15:46 Dose: Not Given Furosemide (Lasix) 40 mg PO DAILY [facility] Last Admin: 09/08/18 12:04 Dose: 40 mg Furosemide (Lasix) 40 mg IVPUSH NOW ONE Stop: 09/09/18 08:59 Last Admin: 09/09/18 10:22 Dose: 40 mg Sodium Chloride (Normal Saline) 1,000 mls @ 75 mls/hr IV ASDIRECTED [facility] Last Admin: 09/09/18 04:17 Dose: 75 mls/hr Magnesium Sulfate 4 gm/ Premix 100 mls @ 50 mls/hr IV ONETIME ONE Stop: 09/08/18 18:47 Last Admin: 09/08/18 17:26 Dose: 50 mls/hr Dextrose/Water (Dextrose 5% In Water) 1,000 mls @ 50 mls/hr IV ASDIRECTED [facility] Stop: 09/11/18 06:29 Last Admin: 09/10/18 11:43 Dose: 50 mls/hr Insulin Aspart (Novolog) 0 unit SUBCUT ACBREAKFASTANDBED [facility]; Protocol Metolazone (Zaroxolyn) 2.5 mg PO DAILY [facility] Last Admin: 09/09/18 09:11 Dose: 2.5 mg Non-Formulary Medication (Docusate Sodium [Colace]) 50 mg PO BID [facility] Oxycodone HCl (Oxycodone) 5 mg PO Q4H PRN PRN Reason: Pain (moderate 4-6) - Exam General: Reports: Alert, Oriented, Cooperative, No Acute Distress Neck: Reports: Supple Lungs: Reports: Clear to Auscultation, Normal Respiratory Effort Cardiovascular: Reports: Regular Rate, Regular Rhythm, No Murmurs GI/Abdominal Exam: Normal Bowel Sounds, Soft, Non-Tender, Other (obese abdomen) Extremities: Normal Inspection, Normal Range of Motion, Non-Tender Skin: Reports: Warm, Dry, Other (severe plaque psorasis covering entire body.) Neurological: Reports: No New Focal Deficit Psy/Mental Status: Reports: Alert, Normal Affect, Normal Mood
== END 2018-09-11 15:52 | DRG 178 ==
LOC: MW.MS 10:12
PROVIDERS: ADMIT Internal Medicine; ATTEND Internal Medicine
DX: J69.0 Pneumonitis due to inhalation of food and vomit (principal); I13.0 Hypertensive heart and chronic kidney disease with heart failure and stage 1 through stage 4 chronic kidney disease, or unspecified chronic kidney disease; I50.32 Chronic diastolic (congestive) heart failure; E87.0 Hyperosmolality and hypernatremia; R13.10 Dysphagia, unspecified; L40.9 Psoriasis, unspecified; E83.52 Hypercalcemia; F41.1 Generalized anxiety disorder; E78.5 Hyperlipidemia, unspecified; F25.9 Schizoaffective disorder, unspecified; G47.30 Sleep apnea, unspecified; G40.909 Epilepsy, unspecified, not intractable, without status epilepticus; N18.3 Chronic kidney disease, stage 3 (moderate); E11.22 Type 2 diabetes mellitus with diabetic chronic kidney disease; E79.0 Hyperuricemia without signs of inflammatory arthritis and tophaceous disease; G31.84 Mild cognitive impairment of uncertain or unknown etiology; E11.42 Type 2 diabetes mellitus with diabetic polyneuropathy; F41.9 Anxiety disorder, unspecified; F32.9 Major depressive disorder, single episode, unspecified; E66.9 Obesity, unspecified; F42.4 Excoriation (skin-picking) disorder; D50.9 Iron deficiency anemia, unspecified; Z68.36 Body mass index [BMI] 36.0-36.9, adult; Z87.891 Personal history of nicotine dependence; Z99.81 Dependence on supplemental oxygen; Z79.82 Long term (current) use of aspirin; Z79.52 Long term (current) use of systemic steroids; Z79.899 Other long term (current) drug therapy; Z86.73 Personal history of transient ischemic attack (TIA), and cerebral infarction without residual deficits; Z87.01 Personal history of pneumonia (recurrent)
CPT/HCPCS: 36415; 71045; 71045-26; 80048; 80053; 82306; 82340; 82962; 83735; 83970; 84100; 84155; 84165; 84550; 85025; 87040; 88104; 92610-GN; 93005; 93306; 94640; 97161-GP; 97165-GO; A9270-GY; J1644; J1815-GY; J1940; J1956; J3475; J3490; J7040; J7060; J7512; J7620-GY